=== PATIENT | female | born 1950 | race Caucasian/White ===

== ENCOUNTER 2016-11-07 12:01 | Inpatient (IN) | payer OTHER ==
[2016-11-07] VITALS (16 sets, daily range): BP systolic 122–152; BP diastolic 50–105
[~2016-11-07] VITALS: Ht 157.5 cm; Wt 41.0 kg
--- NOTE | ~2016-11-07 | H ---
[facility] [place] [address] HISTORY AND PHYSICAL Name: JACINDA GUY Room #: 245-P ADM IN M.R.#: [id number] Admission: 11/07/16 Attend Phys: Olga Plasencia MD Discharge: Date of : 46 Report #: [id number] THIS REPORT FOR: //name// CC: DREW Plasencia DATE OF SERVICE: 11/07/2016 PRIMARY CARE DOCTOR: Dr. Drew Dixon. CHIEF COMPLAINT: Shortness of breath. HISTORY OF PRESENT ILLNESS: The patient is a 66-year-old female with a history of chronic respiratory failure, on 3 liters of home O2; COPD, CHF, suspect diastolic based on the records here; previous history of respiratory arrest in 2013, at which time she was treated here; obstructive sleep apnea on BiPAP, presented to the ER secondary to shortness of breath. She is not a good historian as she is intermittently confused, therefore most of the information was obtained from the ER physician. She tells me she has been short of breath for about a week now. Her neighbors activated EMS today because she would not answer the door. On arrival, she appeared to be cyanotic with O2 sats in the 80s. She received breathing treatment en route. She apparently was treated for COPD exacerbation at [facility] couple of weeks ago. She claims to have quit smoking. Workup in the ER revealed an elevated CO2 of 90 with pH of 7.28. I was asked to admit her for hypercapnic respiratory failure. She currently denies any chest pain, does indicate the shortness of breath is a little improved. PAST MEDICAL HISTORY: As stated, chronic respiratory failure, on 3 liters of home O2; COPD, obstructive sleep apnea, on BiPAP; prior history of PE in 2013, although she is no longer on anticoagulation; paroxysmal AFib, chronic back pain, scoliosis, chronic kidney disease, prior history of compression fractures, and dyslipidemia. PAST SURGICAL HISTORY: She has had breast implants. FAMILY HISTORY: Reviewed and noncontributory. SOCIAL HISTORY: Prior history of smoking, although she currently indicates that she quit, was living independently. CURRENT MEDICATIONS: Include digoxin 0.125 mcg daily, diltiazem 30 mg p.r.n., albuterol p.r.n., atorvastatin 10 daily, Excedrin for headaches p.r.n., Xanax 0.25 mg at bedtime p.r.n., Symbicort 2 puffs b.i.d., Vona p.r.n., Spiriva 1 inhalation daily, and tramadol p.r.n. [address] [address] HISTORY AND PHYSICAL Name: JACINDA GUY Room #: [address] [place] [address] IN M.R.#: [id number] Admission: 11/07/16 Attend Phys: Olga Plasencia MD Discharge: Date of : 48 Report #: [id number] ALLERGIES: PENICILLIN, reactions unknown and CODEINE causes headache. REVIEW OF SYSTEMS: Difficult to obtain secondary to above, although the ER physician documented 10-point review of systems conducted, all negative except for above. PHYSICAL EXAMINATION: VITAL SIGNS: Temperature of 98, pulse of 102, blood pressure 143/64, and O2 sats 96% on FIO2 of 40. GENERAL: She is awake, intermittently confused, currently on the BiPAP, overall tachypneic. HEENT: Normocephalic, atraumatic. Pupils are equal. Mucous membranes are dry. NECK: Supple. CARDIOVASCULAR: Regular rate and rhythm. No murmurs. LUNGS: Decreased breath sounds diffusely, occasional wheeze. ABDOMEN: Soft, no distention or tenderness. EXTREMITIES: No edema. NEUROLOGIC: Nonfocal. LABORATORY AND TESTING: Initial ABG with pH of 7.28, pCO2 of 90, pO2 of 89, lactate of 1.06, O2 sat 93% on 3 liters. Repeat ABG after an hour and a half of BiPAP, pH of 7.3, pCO2 of 80, O2 sat %; this was on her BiPAP with an FIO2 of 40. TSH was 0.209. EKG showed sinus rhythm with a rate of 93 with PACs. Chest x-ray air trapping without evidence of pneumothorax or pleural effusion. White count of 9, H and H of 11 and 36, and platelets 249. Sodium 144, potassium 4.7, BUN and creatinine 26 and 0.7. ASSESSMENT AND PLAN: 1. Acute on chronic hypercapnic respiratory failure. We will continue O2 support with an IV and potential intubation if necessary. Pulmonary will see her. Continue aggressive pulmonary toiletry, IV steroids, and empiric antibiotics. 2. Chronic obstructive pulmonary disease exacerbation, again aggressive measures as above. 3. Prior history of heavy tobacco abuse. She currently indicates that she quit smoking. 4. History of pulmonary embolism. We will get a D-dimer and potential VQ or a CT angio if it is positive. 5. Paroxysmal atrial fibrillation. Continue her digoxin. She is currently not on any anticoagulation. 6. Chronic back pain. Continue pain meds judiciously. 7. Chronic congestive heart failure, suspect diastolic. She is currently not [address] [address] HISTORY AND PHYSICAL Name: JACINDA GUY Room #: 245-P [facility] IN M.R.#: [id number] Admission: 11/07/16 Attend Phys: Olga Plasencia MD Discharge: Date of : 48 Report #: [id number] on any diuretic therapy at this time. 8. Deep venous thrombosis prophylaxis with Lovenox. By: 1519 1722 Olga Plasencia MD /nt
--- NOTE | ~2016-11-07 | EKG ---
[address] [place] [address] ELECTROCARDIOGRAM REPORT Name: JACINDA GUY Room #: 306-P ADM IN M.R.#: [id number] Admission: 11/07/16 Attend Phys: Olga Plasencia MD Discharge: Date of : 48 Report #: [id number] THIS REPORT FOR: //name// [facility] ED Test Date: 2016-11-07 Test Time: 13:18:27 Pat Name: JACINDA GUY Department: Room: 306 Gender: F Managed Care Analyst: mayte : 1950 Requested By: Codey Sanchez Order Number: [id number] MD: Jean Ennis Measurements Intervals [place] Rate: 93 P: 91 SD: 161 QRS: 117 QRSD: 85 T: 91 QT: 338 QTc: 421 Interpretive Statements Sinus rhythm Atrial premature complexes Right atrial abnormality Right axis deviation Borderline low voltage, extremity leads Nonspecific T abnormalities, lateral leads Baseline wander in lead(s) II,III,aVR,aVL,aVF,V3 Compared to ECG 09/11/2013 07:17:57 Atrial premature complex(es) now present Electronically Signed On 11-09-2016 14:52:20 CDT by Jean Ennis [email or web address] <ELECTRONICALLY SIGNED> By: Jean Ennis MD, FACC 11/09/16 1452 1318 1318 Jean Ennis MD, [facility] /EPI
--- NOTE | ~2016-11-07 | HC ---
[facility] [address] [address] CONSULTATION Name: JACINDA GUY Room #: 306-P ADM IN M.R.#: [id number] Admission: 11/07/16 Attend Phys: Olga Plasencia MD Discharge: Date of : 48 Report #: [id number] THIS REPORT FOR: //name// CC: KENYATTA Plasencia DATE OF SERVICE: 11/07/2016 REASON FOR CONSULTATION: Hypercapnic respiratory failure. IMPRESSION: 1. Hypercapnic respiratory failure. 2. Exacerbation of chronic obstructive pulmonary disease. 3. Anemia. 4. 08/2013, history of arrest and acute renal failure. 5. Debilitation with recent falls. ICU protocol. BiPAP. Aerosol therapy. Corticosteroids. May check a repeat echo. HISTORY: A 66-year-old female who usually follows at [facility], currently on BiPAP. Unable to give lot of history, but relates she feels better than when she arrived. Recent admission to the hospital with exacerbation of COPD, off of antibiotics currently, now comes in found by EMS with low sats and was not opening door by report. SOCIAL HISTORY: Quit smoking in 2009. PAST SURGICAL HISTORY: Include breast implants. REVIEW OF SYSTEMS: History of COPD, chronic pain, compression fractures, scoliosis, per chart history of CHF. No fever or chills. Positive for cough, shortness of breath. Recent falls. ALLERGIES: PENICILLIN AND CODEINE. PHYSICAL EXAMINATION: VITAL SIGNS: Temp 93, pulse 68, respirations 12, BP 147/57. BiPAP on. NECK: Trachea midline. LUNGS: Showed very minimal air movement. HEART: Regular. ABDOMEN: Bowel sounds present. EXTREMITIES: Showed no edema. She is very thin. She follows and moved all extremities. LABORATORY DATA: BUN 26 and creatinine 0.7. White count 9.2, hemoglobin 11.2 and platelets 249. pH 7.284, pCO2 91 and pO2 89 on 3 liters. Chest x-ray showed bilateral calcified mammoplasties. Repeat ABG: pH 7.306, pCO2 80 and [facility] [address] [place] [address] CONSULTATION Name: JACINDA GUY Room #: 306-P [facility] IN [facility].#: [id number] Admission: 11/07/16 Attend Phys: Olga Plasencia MD Discharge: Date of : 48 Report #: [id number] pO2 70. On BiPAP 40%, rate of 20, pressure support of 14, PEEP of 8. TSH 0.209. We will follow closely with you. <ELECTRONICALLY SIGNED> By: Adonay Olmstead MD 11/10/16 0548 1738 1036 Adonay Olmstead MD /nt
[~2016-11-07 12:01] MED LIST: ACID CONTROL20 MG PO; ADULT LOW DOSE81 MG PO; ALBUTEROL INHAL17 GM IH; ALPRAZOLAM 0.0.25 M1 PO; CARVEDILOL3.125 MG PO; COLACE100 MG PO; DAILY VALUE1 EACH PO; DILAUDID 2 MG TA2 MG PO; EXCEDRIN CAPLE1 EACH PO; FAMOTIDINE 20 M20 MG PO; FENTANYL PA25 MCG/HR TP; FUROSEMIDE 20 M20 M1 PO; K-DUR10 ME1 PO; LIDODERM 5%1 PATCH TOP; MEDLISTUNAVAIL; MOBIC15 MG PO; NIACIN SR 250250 MG PO; NORCO 5-325 TA1 EACH PO; PREDNISONE 10 M10 M1 PO; PROAIR HFA8.5 GM INH; SPIRIVA INH; SYMBICORT160 MCG/4. INH; THERA-M CAPLET1 EACH PO; TRAMADOL 50 MG50 MG PO; XANAX 0.25 MG0.25 MG PO; ZOCOR 10 MG TAB10 MG PO
[2016-11-07 12:28] LABS: HEMATOCRIT 36.2 % (37.0-47.0); HEMOGLOBIN 11.2 gm/dL (12.0-15.0); MCH 26.9 pg (26.0-34.0); MCHC 30.9 g/dL (28.0-37.0); MCV 87.2 fL (80.0-100.0); RBC 4.15 mil/uL (4.20-5.00); RDW 17.9 % (10.5-14.5); WBC 9.2 thou/uL (4.0-11.0)
[2016-11-07 12:31] LABS: CALCIUM 8.5 mg/dL (8.5-10.1); CREATININE 0.7 mg/dL (0.6-1.0); POTASSIUM 4.7 mmol/L (3.5-5.1)
[2016-11-07] MEDS ORDERED: DIGOXIN125 MCG PO (12:37)
[2016-11-07] MEDS ORDERED: XANAX 0.5 MG0.5 MG PO (12:37)
[2016-11-07] MEDS ORDERED: CARDIZEM30 MG PO (12:38)
[2016-11-07] MEDS ORDERED: VENTOLIN HFA 1818 GM INH (12:39)
[2016-11-07] MEDS ORDERED: LIPITOR10 MG PO (12:39)
[2016-11-07 12:44] LABS: ABG SAMPLE TYPE ARTERIAL; BE(vivo) 11.9 mmol/L (-2 to +3); HCO3 42.1 mmol/L (22.0-26.0); LACTATE 1.06 mmol/L (0.5-2.0); O2(CT) 16.2 mL/dL (15.0-23.0); O2Hb 93.3 % (92.0-98.0); PO2 89.4 mmHg (80.0-100.0); sO2 95.2 % (92.0-98.0); tCO2 44.9 mmol/L (24.0-30.0)
[2016-11-07 12:45] LABS: PCO2 90.9 mmHg (35.0-45.0); STICK SITE R.RADIAL; pH 7.284 (7.360-7.450)
[2016-11-07 14:20] LABS: ABG SAMPLE TYPE ARTERIAL; BE(vivo) 9.9 mmol/L (-2 to +3); HCO3 39.1 mmol/L (22.0-26.0); O2(CT) 15.4 mL/dL (15.0-23.0); O2Hb 90.3 % (92.0-98.0); PO2 70.4 mmHg (80.0-100.0); sO2 91.7 % (92.0-98.0); tCO2 41.5 mmol/L (24.0-30.0)
[2016-11-07 14:21] LABS: PCO2 80.1 mmHg (35.0-45.0); STICK SITE R.BRACHIAL; pH 7.306 (7.360-7.450)
[2016-11-07 14:22] LABS: Pressure Support 14 cm H20; TIDAL VOLUME 640 ml
[2016-11-07 16:48] LABS: ABG SAMPLE TYPE ARTERIAL; BE(vivo) 9.7 mmol/L (-2 to +3); HCO3 37.7 mmol/L (22.0-26.0); LACTATE 1.37 mmol/L (0.5-2.0); O2Hb 94.5 % (92.0-98.0); PCO2 69.5 mmHg (35.0-45.0); PO2 87.6 mmHg (80.0-100.0); Pressure Support 10 cm H20; STICK SITE L.RADIAL; pH 7.352 (7.360-7.450); sO2 95.9 % (92.0-98.0); tCO2 39.8 mmol/L (24.0-30.0)
[2016-11-07 17:33] LABS: TROPONIN-I < 0.04 ng/mL (<0.04-0.07)
[2016-11-07 17:47] LABS: ALBUMIN 3.3 g/dL (3.4-5.0); ALKALINE PHOSPHATASE 74 U/L (46-116); DIRECT BILIRUBIN < 0.1 mg/dL (<0.1-0.3); SGOT 19 U/L (15-37); SGPT 13 U/L (30-65); TOTAL BILIRUBIN 0.4 mg/dL (<0.1-1.0); TOTAL PROTEIN 7.3 g/dL (6.4-8.2)
[2016-11-07 23:29] LABS: TROPONIN-I < 0.04 ng/mL (<0.04-0.07)
[2016-11-08] VITALS (14 sets, daily range): BP systolic 93–124; BP diastolic 40–110
[2016-11-08 05:25] LABS: ABG SAMPLE TYPE ARTERIAL; BE(vivo) 11.2 mmol/L (-2 to +3); HCO3 36.6 mmol/L (22.0-26.0); LACTATE 2.36 mmol/L (0.5-2.0); O2(CT) 16.4 mL/dL (15.0-23.0); O2Hb 98.5 % (92.0-98.0); PCO2 51.8 mmHg (35.0-45.0); PO2 153.5 mmHg (80.0-100.0); STICK SITE R.BRACHIAL; pH 7.467 (7.360-7.450); tCO2 38.2 mmol/L (24.0-30.0)
[2016-11-08 05:26] LABS: ABG COMMENT 18/8 I/E; Pressure Support 18 cm H20; VDS BIPAP SPONT TIMED cc
[2016-11-08 05:35] LABS: HEMATOCRIT 36.5 % (37.0-47.0); HEMOGLOBIN 11.2 gm/dL (12.0-15.0); MCH 26.4 pg (26.0-34.0); MCHC 30.7 g/dL (28.0-37.0); MCV 85.9 fL (80.0-100.0); PLATELET COUNT 250 thou/uL (150-400); RBC 4.25 mil/uL (4.20-5.00); WBC 2.5 thou/uL (4.0-11.0)
[2016-11-08 05:37] LABS: MANUAL DIFF YES
[2016-11-08 06:00] LABS: ANION GAP 7 mmol/L (7-16); BUN 44 mg/dL (7-18); CALCIUM 8.5 mg/dL (8.5-10.1); CHLORIDE 98 mmol/L (98-107); CO2 38 mmol/L (21-32); CREATININE 1.1 mg/dL (0.6-1.0); GLUCOSE 154 mg/dL (74-106); POTASSIUM 5.4 mmol/L (3.5-5.1); SODIUM 143 mmol/L (136-145); TROPONIN-I < 0.04 ng/mL (<0.04-0.07)
[2016-11-08 10:46] LABS: ABSOLUTE NEUTROPHILS 1.9 thou/uL (1.4-8.2); TOTAL CELL COUNT 100
[2016-11-08 10:47] LABS: ANISOCYTOSIS 1+
[2016-11-09 04:00] VITALS: BP 115/67
[2016-11-09 04:57] LABS: HEMATOCRIT 29.9 % (37.0-47.0); HEMOGLOBIN 9.4 gm/dL (12.0-15.0); MCH 26.6 pg (26.0-34.0); MCHC 31.6 g/dL (28.0-37.0); MCV 84.3 fL (80.0-100.0); RBC 3.54 mil/uL (4.20-5.00); RDW 18.1 % (10.5-14.5)
[2016-11-09 05:01] LABS: WBC 11.7 thou/uL (4.0-11.0)
[2016-11-09 05:08] LABS: CALCIUM 7.9 mg/dL (8.5-10.1); MAGNESIUM 1.9 mg/dL (1.8-2.4); POTASSIUM 4.5 mmol/L (3.5-5.1)
[2016-11-09 08:00] VITALS: BP 111/52
[2016-11-09] MEDS ORDERED: DOXYCYCLINE 10100 MG PO (08:40)
[2016-11-09] MEDS ORDERED: PREDNISONE 10 M10 MG PO (08:41)
[2016-11-09 16:00] VITALS: BP 101/50
[2016-11-09 19:19] VITALS: BP 112/61
[2016-11-10 04:24] VITALS: BP 111/70
[2016-11-10 06:08] LABS: HEMATOCRIT 31.2 % (37.0-47.0); HEMOGLOBIN 9.6 gm/dL (12.0-15.0); MCH 26.4 pg (26.0-34.0); MCHC 30.9 g/dL (28.0-37.0); MCV 85.4 fL (80.0-100.0); RBC 3.65 mil/uL (4.20-5.00); WBC 14.3 thou/uL (4.0-11.0)
[2016-11-10 07:20] VITALS: BP 116/46
[2016-11-10 10:51] VITALS: BP 116/46
[2016-11-10 11:12] VITALS: BP 112/58
[2016-11-10] MEDS ORDERED: DUONEB 2.5-0.5 M3 ML INH ×2 (11:57→13:00)
[2016-11-10] MEDS ORDERED: PULMICORT0.5 MG/21 INH (11:57)
== END 2016-11-10 13:35 | disposition home or self-care (01) | DRG 189 ==
LOC: ER 12:01 → 3N 13:51 → EROBS 13:51 → ICU 17:59 → 3N 11-08 12:21
PROVIDERS: Emergency Medicine; Family Medicine; Internal Medicine Pulmonary Disease
PROC: 5A09457 Assistance with Respiratory Ventilation, 24-96 Consecutive Hours, Continuous Positive Airway Pressure (ICD-10-PCS; principal; 2016-11-07)
DX: J96.22 Acute and chronic respiratory failure with hypercapnia (principal); J44.1 Chronic obstructive pulmonary disease with (acute) exacerbation; I13.0 Hypertensive heart and chronic kidney disease with heart failure and stage 1 through stage 4 chronic kidney disease, or unspecified chronic kidney disease; G89.29 Other chronic pain; M54.9 Dorsalgia, unspecified; I50.9 Heart failure, unspecified; M41.9 Scoliosis, unspecified; D64.9 Anemia, unspecified; R53.81 Other malaise; G47.33 Obstructive sleep apnea (adult) (pediatric); I48.0 Paroxysmal atrial fibrillation; N18.9 Chronic kidney disease, unspecified; E78.5 Hyperlipidemia, unspecified; Z86.74 Personal history of sudden cardiac arrest; Z86.711 Personal history of pulmonary embolism; Z88.0 Allergy status to penicillin; Z88.6 Allergy status to analgesic agent; Z87.311 Personal history of (healed) other pathological fracture; Z87.891 Personal history of nicotine dependence
CPT/HCPCS: 10078; 10096

== ENCOUNTER 2016-11-29 14:59 | Inpatient (IN) | payer OTHER ==
[~2016-11-29] VITALS: Ht 157.5 cm; Wt 38.1 kg
--- NOTE | ~2016-11-29 | EKG ---
[address] [address] ELECTROCARDIOGRAM REPORT Name: GUYJACIDNA SUE Room #: 453-P ADM IN M.R.#: [id number] Admission: 11/29/16 Attend Phys: Mario Arango DO Discharge: Date of : 48 Report #: [id number] THIS REPORT FOR: //name// [facility] ED Test Date: 2016-11-29 Test Time: 15:37:21 Pat Name: JACINDA GUY Department: Room: [facility] Gender: F Emergency Response Coordinator: Ad WHITING : 1950 Requested By: Devang Singh Order Number: [id number] MD: Jere Manley Measurements Intervals [place] Rate: 102 P: 82 HI: 174 QRS: 112 QRSD: 79 T: 55 QT: 310 QTc: 404 Interpretive Statements Sinus tachycardia Atrial premature complex Biatrial enlargement Anteroseptal infarct, age indeterminate Electronically Signed On 12-01-2016 8:45:31 CDT by Jere Manley [email or web address] <ELECTRONICALLY SIGNED> By: Jere Manley MD 12/01/16 0845 36 36 Jere Manley MD /DHIRAJ
--- NOTE | ~2016-11-29 | HC ---
[facility] [place] [address] CONSULTATION Name: JACINDA GUY Room #: 453-P ADM IN M.R.#: [id number] Admission: 11/29/16 Attend Phys: Mario Arango DO Discharge: Date of : 48 Report #: [id number] THIS REPORT FOR: //name// CC: KENYATTA Barakat DATE OF SERVICE: 11/30/2016 REASON FOR CONSULTATION: COPD management. IMPRESSION: 1. Hypercapnic respiratory failure. 2. Anemia. 3. History of arrest and acute renal failure in 2013. 4. Debilitation. PLAN: Agree with current therapy. She is not on antibiotics and since does not complain about a recent infection. She relates most of this is related to forgetting to turn on her oxygen. She has been in the hospital in [place] earlier this year, and November 07 here. We will have a psychotherapist social worker see as I am concerned about her status at home as she may not be following through with suggestions and may need more of assisted living. HISTORY PER CHART: A 66-year-old female who comes to the emergency room with shortness breath, brought by EMS. She to ER, she lost her oxygen for a couple of minutes and then began feeling short of breath. She denies any chest pain or shortness of breath with it. She relates she is doing well at this time. She denies fever, chills, night sweats, hemoptysis. HOME MEDICATIONS PER COMPUTER: Include digoxin, tramadol, diltiazem, DuoNeb. PAST SURGICAL HISTORY: Include breast implants. ALLERGIES: PENICILLIN and CODEINE. FAMILY HISTORY: Negative for early lung disease. REVIEW OF SYSTEMS: History of COPD, chronic back pain, compression fractures, scoliosis, history of CHF, no fever or chills, prior to being off oxygen she relates she felt okay. She does not relate she is taking a significant amount of pain meds. No abdominal pain, no peripheral edema. PHYSICAL EXAMINATION: VITAL SIGNS: Temperature 98, pulse 60, respirations 20, BP 131/53. EYES: Negative icterus. NECK: Trachea midline. [facility] [address] [place] [address] CONSULTATION Name: BROOKSJACINDA VEGA Room #: 453-P [facility] IN M.R.#: [id number] Admission: 11/29/16 Attend Phys: Mario Arango DO Discharge: Date of : 48 Report #: [id number] LUNGS: Showed decreased breath sounds. No definite wheeze. HEART: Regular. ABDOMEN: Bowel sounds present. EXTREMITIES: Showed no calf tenderness or edema. Moved all extremities, recognized me when I walked into room. LABORATORY DATA: White count 4.9, hemoglobin 10.5, platelets 217. Chest x-ray showed no acute. Lactic acid 2.2. BUN 36, creatinine 0.8, albumin 2.9. ABG this morning, off BiPAP, pH 7.38, pCO2 of 72.5 and pO2 of 67.9. Yesterday afternoon ABG showed pH 7.306, pCO2 93.2, pO2 of 95.6 on 4 liters. Her carboxyhemoglobin was 1.6. Chest x-ray showed chronic changes, D-dimer 0.49, white count 12.8, hemoglobin 11.3, platelets 247, no bands. We will follow closely with you. <ELECTRONICALLY SIGNED> By: Adonay Olmstead MD 12/01/16 1950 1114 1857 Adonay Olmstead MD /nt
[~2016-11-29 14:59] MED LIST changes: +CARDIZEM30 MG PO; +DIGOXIN125 MCG PO; +DOXYCYCLINE 10100 MG PO; +DUONEB 2.5-0.5 M3 ML INH; +LIPITOR10 MG PO; +PREDNISONE 10 M10 MG PO; +PULMICORT0.5 MG/21 INH; +VENTOLIN HFA 1818 GM INH; +XANAX 0.5 MG0.5 MG PO
[2016-11-29 15:01] VITALS: BP 134/67
[2016-11-29 15:25] LABS: HEMOGLOBIN 11.3 gm/dL (12.0-15.0)
[2016-11-29 15:28] LABS: ABG SAMPLE TYPE ARTERIAL; BE(vivo) 15.5 mmol/L (-2 to +3); HCO3 45.5 mmol/L (22.0-26.0); LACTATE 0.73 mmol/L (0.5-2.0); O2(CT) 15.4 mL/dL (15.0-23.0); O2Hb 95.1 % (92.0-98.0); PCO2 93.2 mmHg (35.0-45.0); PO2 95.6 mmHg (80.0-100.0); STICK SITE R.BRACHIAL; pH 7.306 (7.360-7.450); sO2 96.1 % (92.0-98.0); tCO2 48.3 mmol/L (24.0-30.0)
[2016-11-29 15:29] LABS: MCH 27.3 pg (26.0-34.0); MCV 85.2 fL (80.0-100.0); PLATELET COUNT 247 thou/uL (150-400)
[2016-11-29 15:31] LABS: HEMATOCRIT 35.2 % (37.0-47.0); RBC 4.13 mil/uL (4.20-5.00); RDW 20.8 % (10.5-14.5); WBC 12.8 thou/uL (4.0-11.0)
[2016-11-29 15:34] LABS: MANUAL DIFF YES
[2016-11-29 16:08] LABS: CREATININE 0.6 mg/dL (0.6-1.0); POTASSIUM 4.7 mmol/L (3.5-5.1)
[2016-11-29 16:19] LABS: ALBUMIN 3.1 g/dL (3.4-5.0); MAGNESIUM 1.8 mg/dL (1.8-2.4); TOTAL BILIRUBIN 0.3 mg/dL (<0.1-1.0); TOTAL PROTEIN 6.8 g/dL (6.4-8.2); TROPONIN-I 0.05 ng/mL (<0.04-0.07)
[2016-11-29 16:59] LABS: TOTAL CELL COUNT 100
[2016-11-29 17:00] LABS: ANISOCYTOSIS 2+; MACROCYTES 1+; MICROCYTES 2+; TARGET CELLS 1+
[2016-11-29 18:45] VITALS: BP 142/66
[2016-11-29 21:37] LABS: ABG SAMPLE TYPE ARTERIAL; BE(vivo) 12.1 mmol/L (-2 to +3); HCO3 39.7 mmol/L (22.0-26.0); LACTATE 1.52 mmol/L (0.5-2.0); O2(CT) 15.2 mL/dL (15.0-23.0); O2Hb 93.6 % (92.0-98.0); PCO2 68.6 mmHg (35.0-45.0); PO2 75.9 mmHg (80.0-100.0); Pressure Support 6 cm H20; STICK SITE L.RADIAL; sO2 94.4 % (92.0-98.0); tCO2 41.8 mmol/L (24.0-30.0)
[2016-11-29 23:26] VITALS: BP 106/65
[2016-11-30 04:12] VITALS: BP 122/59
[2016-11-30 05:31] LABS: HEMATOCRIT 33.1 % (37.0-47.0); HEMOGLOBIN 10.5 gm/dL (12.0-15.0); MCH 27.3 pg (26.0-34.0); MCHC 31.6 g/dL (28.0-37.0); MCV 86.3 fL (80.0-100.0); PLATELET COUNT 217 thou/uL (150-400); RBC 3.84 mil/uL (4.20-5.00); WBC 4.9 thou/uL (4.0-11.0)
[2016-11-30 05:32] LABS: MANUAL DIFF YES
[2016-11-30 05:34] LABS: ABG SAMPLE TYPE ARTERIAL; HCO3 41.9 mmol/L (22.0-26.0); LACTATE 2.09 mmol/L (0.5-2.0); O2(CT) 14.5 mL/dL (15.0-23.0); O2Hb 90.9 % (92.0-98.0); PCO2 72.5 mmHg (35.0-45.0); PO2 67.9 mmHg (80.0-100.0); STICK SITE L.RADIAL; sO2 92.4 % (92.0-98.0); tCO2 44.2 mmol/L (24.0-30.0)
[2016-11-30 05:35] LABS: VDS OFF BIPAP 45MIN cc
[2016-11-30 05:48] LABS: ALBUMIN 2.9 g/dL (3.4-5.0); CALCIUM 8.7 mg/dL (8.5-10.1); CREATININE 0.8 mg/dL (0.6-1.0); POTASSIUM 4.5 mmol/L (3.5-5.1); TOTAL BILIRUBIN 0.3 mg/dL (<0.1-1.0); TOTAL PROTEIN 6.6 g/dL (6.4-8.2)
[2016-11-30 07:22] VITALS: BP 131/53
[2016-11-30 09:56] LABS: ABSOLUTE NEUTROPHILS 4.5 thou/uL (1.4-8.2); TOTAL CELL COUNT 100
[2016-11-30 09:57] LABS: ANISOCYTOSIS 1+
[2016-11-30 11:20] VITALS: BP 126/62
[2016-11-30 15:38] VITALS: BP 122/50
[2016-11-30 19:22] VITALS: BP 117/41
[2016-12-01 03:20] VITALS: BP 116/55
[2016-12-01 07:24] VITALS: BP 117/62
[2016-12-01 12:48] VITALS: BP 113/47
[2016-12-01 15:55] VITALS: BP 131/65
[2016-12-01 20:00] VITALS: BP 117/52
[2016-12-02 04:00] VITALS: BP 133/63
[2016-12-02 08:17] VITALS: BP 108/53
[2016-12-02 10:23] VITALS: BP 108/53
[2016-12-02 10:27] VITALS: BP 108/53
== END 2016-12-02 11:33 | disposition home health service (06) | DRG 189 ==
LOC: ER 14:59 → EROBS 16:26 → 4W 16:26
PROVIDERS: Internal Medicine Geriatric Medicine; Internal Medicine Pulmonary Disease; Physician Assistant
PROC: 5A09357 Assistance with Respiratory Ventilation, Less than 24 Consecutive Hours, Continuous Positive Airway Pressure (ICD-10-PCS; principal; 2016-11-29)
DX: J96.22 Acute and chronic respiratory failure with hypercapnia (principal); J44.1 Chronic obstructive pulmonary disease with (acute) exacerbation; G89.29 Other chronic pain; M54.9 Dorsalgia, unspecified; M41.9 Scoliosis, unspecified; I50.9 Heart failure, unspecified; D64.9 Anemia, unspecified; D72.829 Elevated white blood cell count, unspecified; I48.0 Paroxysmal atrial fibrillation; Z88.6 Allergy status to analgesic agent; Z88.0 Allergy status to penicillin; Z98.82 Breast implant status; Z87.891 Personal history of nicotine dependence
CPT/HCPCS: 10045

== ENCOUNTER 2016-12-17 22:51 | Inpatient (IN) | payer OTHER ==
[~2016-12-17] VITALS: Ht 157.5 cm; Wt 44.5 kg
--- NOTE | ~2016-12-17 | EKG ---
[address] [address] ELECTROCARDIOGRAM REPORT Name: JACINDA GUY Room #: 203-P ADM IN M.R.#: [id number] Admission: 12/18/16 Attend Phys: Gregorio Sprague MD Discharge: Date of : 48 Report #: [id number] THIS REPORT FOR: //name// [facility] ED Test Date: 2016-12-17 Test Time: 23:24:50 Pat Name: JACINDA GUY Department: Room: 203 Gender: F Cad Drafter: [id number] : 1950 Requested By: Meche Milligan Order Number: [id number] MD: Jean Ennis Measurements Intervals [place] Rate: 98 P: 85 HI: 182 QRS: 105 QRSD: 83 T: 54 QT: 316 QTc: 404 Interpretive Statements Sinus rhythm with atrial premature complex Probable left atrial enlargement Right axis deviation Probable anteroseptal infarct, old Compared to ECG 11/29/2016 15:37:21 no significant change was found Electronically Signed On 12-18-2016 7:27:41 CDT by Jean Ennis [email or web address] <ELECTRONICALLY SIGNED> By: Jean Ennis MD, [facility] 12/18/16 0727 2324 2324 Jean Ennis MD, [facility] /EPI
--- NOTE | ~2016-12-17 | HC ---
[facility] [place] [address] CONSULTATION Name: JACINDA GUY Room #: 448-P [facility] IN M.R.#: [id number] Admission: 12/18/16 Attend Phys: Mario Arango DO Discharge: 12/23/16 Date of : 48 Report #: [id number] THIS REPORT FOR: //name// CC: KENYATTA Sprague MD DATE OF SERVICE: 12/18/2016 PULMONARY CONSULTATION REFERRING PROVIDER: Gregorio Sprague M.D. REASON FOR CONSULTATION: Respiratory failure. CHIEF COMPLAINT: Shortness of breath. HISTORY OF PRESENT ILLNESS: Our group was asked to see the patient in consultation while hospitalized at [facility]. She has had multiple admissions for acute exacerbation of COPD and hypercapnic respiratory failure. She was brought to the emergency department via EMS on the first december with altered mental status, found down by her neighbor. The patient in the ER was found to be hypercapnic in respiratory failure with acute exacerbation of COPD. She has been started on systemic steroids, bronchodilators and when I saw her, she appeared to be a diminutive lady on BiPAP, arousable, but very somnolent and difficult to get much further history from. ALLERGIES: PENICILLIN and CODEINE. PAST MEDICAL HISTORY: 1. COPD. 2. Chronic hypercapnic respiratory failure. 3. Chronic back pain. 4. History of osteoporosis. 5. Chronic hypoxemic respiratory failure, on 2 liters nasal cannula. 6. Tobacco abuse. 7. Obstructive sleep apnea. 8. History of paroxysmal atrial fibrillation. 9. History of pulmonary emboli. SOCIAL HISTORY: The patient is an active smoker, lives alone, but has son who assists frequently. FAMILY HISTORY: Unobtainable due to diminished level of consciousness. REVIEW OF SYSTEMS: Otherwise, unobtainable due to diminished level of [facility] [address] [place] [address] CONSULTATION Name: JACINDA GUY Room #: 448-P [facility] IN [facility].#: [id number] Admission: 12/18/16 Attend Phys: Mario Arango DO Discharge: 12/23/16 Date of : 48 Report #: [id number] consciousness. PHYSICAL EXAMINATION: VITAL SIGNS: Afebrile, pulse 90s, respiratory rate 18 and blood pressure 118/44. GENERAL: This is a diminutive elderly woman on BiPAP, no distress, somewhat somnolent. ENT: Unassessed due to BiPAP in place. NECK: Supple. No lymphadenopathy. LUNGS: Diminished. Very prolonged expiratory phase, occasional expiratory wheezes noted. CARDIOVASCULAR: Heart regular. No murmurs or gallops. ABDOMEN: Soft, nontender. No masses, no hepatosplenomegaly. EXTREMITIES: Warm, 2+ pulses. No edema noted. INTEGUMENT: No significant rash. LABORATORY DATA: White blood cell count 9000, hemoglobin 10, hematocrit 32 and platelet count 247,000. Sodium 144, potassium 4.5, chloride 102, bicarbonate 41, BUN 36, creatinine 0.8 and glucose 98. Arterial blood gas initially on presentation revealed a pH of 7.26, pCO2 of 92 and pO2 of 81. However, after being on BiPAP prior to my evaluation, blood gas improved with pH at 7.41, pCO2 of 65, pO2 of 68 and bicarbonate of 40. Chest x-ray revealed clear lung [place], cardiomegaly and early left lower lobe infiltrate. IMPRESSION: 1. Acute exacerbation of chronic obstructive pulmonary disease. 2. Left lower lobe pneumonia. 3. Exhbl-tr-odezyet hypercapnic and hypoxemic respiratory failure. 4. Probable medical noncompliance with home CPAP and supplemental oxygen as well as ongoing tobacco abuse. SUGGESTIONS: 1. Smoking cessation. 2. Systemic steroids with taper. 3. Frequent bronchodilators. 4. Continue with current antibiotics. 5. Follow up chest radiograph. 6. Continue BiPAP. We will change to bedtime and p.r.n. as the patient's mental status improves. 7. Follow arterial blood gas. 8. Mobilize with physical and occupational therapy. 9. [place] [address] CONSULTATION Name: JACINDA GUY Room #: 448-P [facility] IN M.R.#: [id number] Admission: 12/18/16 Attend Phys: Mario Arango DO Discharge: 12/23/16 Date of : 48 Report #: [id number] Thank you for requesting our suggestions. <ELECTRONICALLY SIGNED> By: Hai Briggs MD 12/25/16 1133 1614 1145 Hai Briggs MD /nt
[2016-12-17 22:52] VITALS: BP 78/66
[2016-12-17 23:27] LABS: ABG SAMPLE TYPE ARTERIAL; BE(vivo) 9.4 mmol/L (-2 to +3); LACTATE 0.68 mmol/L (0.5-2.0); O2(CT) 15.5 mL/dL (15.0-23.0); O2Hb 94.5 % (92.0-98.0); PO2 121.1 mmHg (80.0-100.0); sO2 97.4 % (92.0-98.0)
[2016-12-17 23:28] LABS: PCO2 97.6 mmHg (35.0-45.0); STICK SITE R.RADIAL; pH 7.231 (7.360-7.450)
[2016-12-17 23:46] LABS: ABSOLUTE NEUTROPHILS 7.2 thou/uL (1.4-8.2); BASOPHILS 0.7 % (0.0-2.0); EOSINOPHILS 0.6 % (0.0-3.0); HEMOGLOBIN 10.6 gm/dL (12.0-15.0); LYMPHOCYTES 17.4 % (24.0-44.0); MCH 26.6 pg (26.0-34.0); MCHC 30.1 g/dL (28.0-37.0); MCV 88.3 fL (80.0-100.0); MONOCYTES 10.6 % (1.0-8.0); PLATELET COUNT 261 thou/uL (150-400); POLYS 70.7 % (36.0-66.0); RBC 3.97 mil/uL (4.20-5.00); RDW 19.9 % (10.5-14.5); WBC 10.2 thou/uL (4.0-11.0)
[2016-12-17 23:50] LABS: MANUAL DIFF NO
[2016-12-17 23:53] LABS: CALCIUM 8.6 mg/dL (8.5-10.1); CREATININE 0.7 mg/dL (0.6-1.0); POTASSIUM 4.5 mmol/L (3.5-5.1)
[2016-12-18] VITALS (7 sets, daily range): BP systolic 110–150; BP diastolic 34–73
[2016-12-18 01:44] LABS: ABG SAMPLE TYPE ARTERIAL; BE(vivo) 10.3 mmol/L (-2 to +3); HCO3 40.5 mmol/L (22.0-26.0); LACTATE 1.05 mmol/L (0.5-2.0); O2(CT) 15.5 mL/dL (15.0-23.0); O2Hb 92.3 % (92.0-98.0); PCO2 91.7 mmHg (35.0-45.0); PO2 80.6 mmHg (80.0-100.0); STICK SITE R.BRACHIAL; pH 7.263 (7.360-7.450); sO2 93.4 % (92.0-98.0); tCO2 43.3 mmol/L (24.0-30.0)
[2016-12-18 01:45] LABS: Pressure Support 6 cm H20
[2016-12-18] MEDS ORDERED: VITAMIN D1000 UNI1 PO (01:58)
[2016-12-18] MEDS ORDERED: TRAMADOL 50 MG50 MG PO (02:02)
[2016-12-18] MEDS ORDERED: HEADACHE RELIE1 EAC3 PO (02:04)
[2016-12-18 07:16] LABS: ABG SAMPLE TYPE ARTERIAL; BE(vivo) 12.6 mmol/L (-2 to +3); HCO3 39.8 mmol/L (22.0-26.0); LACTATE 1.16 mmol/L (0.5-2.0); O2(CT) 15.7 mL/dL (15.0-23.0); O2Hb 92.1 % (92.0-98.0); PCO2 64.8 mmHg (35.0-45.0); PO2 67.5 mmHg (80.0-100.0); Pressure Support 6 cm H20; STICK SITE L.RADIAL; pH 7.406 (7.360-7.450); sO2 92.9 % (92.0-98.0); tCO2 41.8 mmol/L (24.0-30.0)
[2016-12-19] VITALS (8 sets, daily range): BP systolic 89–111; BP diastolic 29–59
[2016-12-19 04:07] LABS: HEMATOCRIT 31.6 % (37.0-47.0); MCH 26.7 pg (26.0-34.0); MCHC 31.8 g/dL (28.0-37.0); RBC 3.77 mil/uL (4.20-5.00); RDW 19.4 % (10.5-14.5); WBC 8.7 thou/uL (4.0-11.0)
[2016-12-19 04:12] LABS: CALCIUM 8.7 mg/dL (8.5-10.1); CREATININE 0.8 mg/dL (0.6-1.0); POTASSIUM 4.5 mmol/L (3.5-5.1)
[2016-12-19 06:05] LABS: ABG SAMPLE TYPE ARTERIAL; BE(vivo) 14.9 mmol/L (-2 to +3); HCO3 41.7 mmol/L (22.0-26.0); LACTATE 1.09 mmol/L (0.5-2.0); O2(CT) 14.1 mL/dL (15.0-23.0); O2Hb 91.7 % (92.0-98.0); PCO2 63.9 mmHg (35.0-45.0); PO2 65.7 mmHg (80.0-100.0); STICK SITE L.RADIAL; pH 7.432 (7.360-7.450); sO2 92.8 % (92.0-98.0); tCO2 43.6 mmol/L (24.0-30.0)
[2016-12-19 06:07] LABS: Pressure Support 6 cm H20
[2016-12-20 03:27] VITALS: BP 97/36
[2016-12-20 05:31] VITALS: BP 99/55
[2016-12-20 08:00] VITALS: BP 121/42
[2016-12-20 12:00] VITALS: BP 121/44
[2016-12-20 16:00] VITALS: BP 107/55
[2016-12-20 19:23] VITALS: BP 118/44
[2016-12-21 03:15] VITALS: BP 104/40
[2016-12-21 08:30] VITALS: BP 103/43
[2016-12-21 13:18] VITALS: BP 111/45
[2016-12-21 15:50] VITALS: BP 109/47
[2016-12-21 19:38] VITALS: BP 103/43
[2016-12-22 03:43] VITALS: BP 123/41
[2016-12-22 04:37] LABS: HEMOGLOBIN 9.3 gm/dL (12.0-15.0); MCH 26.7 pg (26.0-34.0); MCHC 31.1 g/dL (28.0-37.0); MCV 85.8 fL (80.0-100.0); RBC 3.49 mil/uL (4.20-5.00); RDW 20.1 % (10.5-14.5); WBC 12.6 thou/uL (4.0-11.0)
[2016-12-22 04:58] LABS: ANION GAP < 0 mmol/L (7-16); BUN 37 mg/dL (7-18); CALCIUM 8.3 mg/dL (8.5-10.1); CHLORIDE 102 mmol/L (98-107); CO2 41 mmol/L (21-32); CREATININE 0.8 mg/dL (0.6-1.0); GLUCOSE 159 mg/dL (74-106); POTASSIUM 5.5 mmol/L (3.5-5.1); SODIUM 142 mmol/L (136-145)
[2016-12-22 07:20] LABS: ABG SAMPLE TYPE ARTERIAL; BE(vivo) 9.4 mmol/L (-2 to +3); HCO3 36.9 mmol/L (22.0-26.0); LACTATE 1.33 mmol/L (0.5-2.0); O2(CT) 14.1 mL/dL (15.0-23.0); O2Hb 96.5 % (92.0-98.0); PCO2 68.5 mmHg (35.0-45.0); PO2 103.6 mmHg (80.0-100.0); STICK SITE R.RADIAL; pH 7.349 (7.360-7.450); sO2 97.3 % (92.0-98.0)
[2016-12-22 07:50] VITALS: BP 128/61
[2016-12-22 16:15] VITALS: BP 117/34
[2016-12-22 19:45] VITALS: BP 103/42
[2016-12-23 03:05] VITALS: BP 105/98
[2016-12-23 07:48] LABS: BUN 42 mg/dL (7-18); CALCIUM 8.3 mg/dL (8.5-10.1); CHLORIDE 103 mmol/L (98-107); CREATININE 0.8 mg/dL (0.6-1.0); GLUCOSE 84 mg/dL (74-106); POTASSIUM 5.5 mmol/L (3.5-5.1); SODIUM 142 mmol/L (136-145)
[2016-12-23 07:50] LABS: CO2 > 45 mmol/L (21-32)
[2016-12-23 08:37] VITALS: BP 104/44
[2016-12-23 17:47] VITALS: BP 103/54
[2016-12-23] MEDS ORDERED: CEFUROXIME250 MG PO (17:54)
[2016-12-23] MEDS ORDERED: PREDNISONE 10 M10 MG PO (17:57)
== END 2016-12-23 18:47 | disposition home health service (06) | DRG 189 ==
LOC: ER 22:51 → EROBS 12-18 00:16 → 2N 12-18 00:16 → 4S 12-22 18:56
PROVIDERS: Emergency Medicine; Family Medicine; Internal Medicine; Internal Medicine Pulmonary Disease; Nurse Practitioner Acute Care
PROC: 5A09457 Assistance with Respiratory Ventilation, 24-96 Consecutive Hours, Continuous Positive Airway Pressure (ICD-10-PCS; principal; 2016-12-18)
DX: J96.22 Acute and chronic respiratory failure with hypercapnia (principal); J18.9 Pneumonia, unspecified organism; G93.40 Encephalopathy, unspecified; J44.1 Chronic obstructive pulmonary disease with (acute) exacerbation; J44.0 Chronic obstructive pulmonary disease with (acute) lower respiratory infection; J96.21 Acute and chronic respiratory failure with hypoxia; G89.29 Other chronic pain; M54.9 Dorsalgia, unspecified; I50.9 Heart failure, unspecified; M81.0 Age-related osteoporosis without current pathological fracture; G47.33 Obstructive sleep apnea (adult) (pediatric); I48.0 Paroxysmal atrial fibrillation; Z60.2 Problems related to living alone; N18.3 Chronic kidney disease, stage 3 (moderate); Z79.899 Other long term (current) drug therapy; Z86.711 Personal history of pulmonary embolism; Z87.81 Personal history of (healed) traumatic fracture; Z99.81 Dependence on supplemental oxygen; Z88.0 Allergy status to penicillin; Z71.6 Tobacco abuse counseling; Z88.6 Allergy status to analgesic agent; Z87.891 Personal history of nicotine dependence
CPT/HCPCS: 10081; 10102

== ENCOUNTER 2017-01-05 09:50 | Inpatient (IN) | payer OTHER ==
[~2017-01-05] VITALS: Ht 152.4 cm; Wt 48.9 kg
[2017-01-05] VITALS (13 sets, daily range): BP systolic 103–141; BP diastolic 60–91
--- NOTE | ~2017-01-05 | EKG ---
[address] [address] ELECTROCARDIOGRAM REPORT Name: JACINDA GUY Room #: 462- ADM IN M.R.#: [id number] Admission: 01/05/17 Attend Phys: Gregorio Sprague MD Discharge: Date of : 48 Report #: [id number] THIS REPORT FOR: //name// [facility] Test Date: 2017-01-26 Test Time: 15:29:58 Pat Name: JACINDA GUY Department: Room: 462 Gender: F Incident Analyst: Griffin GUZMAN : 1950 Requested By: Hussein Singh Order Number: [id number] MD: Jere Manley Measurements Intervals [place] Rate: 100 P: 86 NC: 151 QRS: 100 QRSD: 90 T: 44 QT: 351 QTc: 453 Interpretive Statements Sinus tachycardia with irregular rate Compared to ECG 01/10/2017 20:12:45 Myocardial infarct finding now present Supraventricular tachycardia no longer present ST (T wave) deviation no longer present Poor R-wave progression no longer present Electronically Signed On 01-26-2017 17:06:41 CDT by Jere Manley [email or web address] <ELECTRONICALLY SIGNED> By: Jere Manley MD 01/26/17 1706 1529 1529 Jere Manley MD /EPI
--- NOTE | ~2017-01-05 | EKG ---
[address] [address] ELECTROCARDIOGRAM REPORT Name: JACINDA GUY Room #: 240-P ADM IN M.R.#: [id number] Admission: 01/05/17 Attend Phys: Gregorio Sprague MD Discharge: Date of : 46 Report #: [id number] THIS REPORT FOR: //name// [facility] ED Test Date: 2017-01-05 Test Time: 10:02:41 Pat Name: JACINDA GUY Department: Room: 240 Gender: F Oncology Physician Assistant: JW : 1950 Requested By: Devang Singh Order Number: [id number] MD: Jere Manley Measurements Intervals [place] Rate: 104 P: 88 [place]: 157 QRS: 111 QRSD: 86 T: 57 QT: 326 QTc: 429 Interpretive Statements Sinus tachycardia Biatrial enlargement Probable RVH w/ secondary repol abnormality Compared to ECG 12/17/2016 23:24:50 Sinus rhythm no longer present Atrial premature complex(es) no longer present Right-axis deviation no longer present Myocardial infarct finding no longer present Electronically Signed On 01-06-2017 12:47:45 CDT by Jere Manley [email or web address] <ELECTRONICALLY SIGNED> By: Jere Manley MD 01/06/17 1247 1002 1002 Jere Manley MD /EPI
--- NOTE | ~2017-01-05 | EKG ---
[address] [address] ELECTROCARDIOGRAM REPORT Name: GUYJACINDA VEGA Room #: 236-P ADM IN M.R.#: [id number] Admission: 01/05/17 Attend Phys: Gregorio Sprague MD Discharge: Date of : 46 Report #: [id number] THIS REPORT FOR: //name// [facility] Test Date: 2017-01-10 Test Time: 20:12:45 Pat Name: JACINDA GUY Department: Room: 236 P Gender: F Appliance Fixer: robb : 1950 Requested By: Stefania Mosquera Order Number: [id number] MD: Jean Ennis Measurements Intervals [place] Rate: 183 P: CT: QRS: 113 QRSD: 74 T: 14 QT: 252 QTc: 440 Interpretive Statements Supraventricular tachycardia Nonspecific ST and T wave abnormality Poor R wave progression Compared to ECG 01/05/2017 10:02:41 SVT has replaced sinus tachycardia Electronically Signed On 01-12-2017 8:32:17 CDT by Jean Ennis [email or web address] <ELECTRONICALLY SIGNED> By: Jean Ennis MD, [facility] 01/12/17 0832 11 11 Jean Ennis MD, [facility] /EPI
--- NOTE | ~2017-01-05 | 2DMMODE ---
[facility] [address] [place] [address] 2 D/M-MODE ECHOCARDIOGRAM Name: BROOKSJACINDA FERRARI Room #: 236-P ADM IN M.R.#: [id number] Admission: 01/05/17 Attend Phys: Gregorio Sprague, Discharge: Date of : 46 Date of Service: 01/16/17 1652 Report #: [id number] THIS REPORT FOR: //name// APPROVED REPORT Study performed: 01/16/2017 08:23:17 EXAM: Comprehensive 2D, Doppler, and color-flow Echocardiogram Patient Location: ICU Room #: 236 Status: routine Other Information Study Quality: Adequate Indications Fluid overload Hx COPD, DM, Afib 2D Dimensions RVDd: 31.94 mm LVEF(%): 77.77 (>50%) IVSd: 13.26 (7-11mm) LVOT Diam: 19.64 (18-24mm) LVDd: 43.69 mm PWd: 11.72 (7-11mm) Ascending Ao: 31.54 (22-36mm) LVDs: 23.52 (25-40mm) Aortic Root: 29.26 mm Cardenas's LVEF: 77.77 % Volumes Left Atrial Volume (Systole) Single Plane 4CH: 17.55 mL Single Plane 2CH: 63.71 mL Aortic Valve AoV Peak Avel.: 2.41 m/s AO Peak Gr.: 14.91 mmHg LVOT Max P.95 mmHg AO Mean Gr.: 13.13 mmHg AO V2 Mean: 1.74 m/s LVOT Max V: 1.50 m/s AO V2 VTI: 34.37 cm KAROLINA Vmax: 1.88 cm2 Mitral Valve E/A Ratio: 0.9 MV Decel. Time: 209.22 ms MV E Max Avel.: 0.84 m/s MV A Avel.: 0.98 m/s MV PHT: 60.[address] [facility] [place] [address] 2 D/M-MODE ECHOCARDIOGRAM Name: JACINDA GUYE Room #: 236-P [facility] IN [facility].#: [id number] Admission: 01/05/17 Attend Phys: Gregorio Sprague, Discharge: Date of : 46 Date of Service: 01/16/17 1652 Report #: [id number] IVRT: 86.51 ms Pulmonary Valve PV Peak Avel.: 1.67 m/s PV Peak Gr.: 11.18 mmHg Pulmonary Vein P Vein S: 0.70 m/s P Vein D: 0.66 m/s P Vein S/D Ratio: 1.06 Tricuspid Valve TR Peak Avel.: 2.25 m/s RAP Estimate: 5.00 mmHg TR Peak Gr.: 20.25 mmHg PA Pressure: 25.00 mmHg Left Ventricle The left ventricle is normal size. There is normal LV segmental wall motion. Mild concentric left ventricular hypertrophy. The left ventricular systolic function is normal. The left ventricular ejection fraction is within the normal range. LVEF is 65-70%. Grade I - abnormal relaxation pattern. Right Ventricle The right ventricle is normal size. The right ventricular systolic function is normal. Atria Left atrium is dilated. Right atrium is at the upper limits of normal. Aortic Valve Aortic valve leaflets are mildly thickened. Trace aortic regurgitation. There is no aortic valvular stenosis. Mitral Valve The mitral valve is normal in structure. No mitral regurgitation. No evidence of mitral valve stenosis. Tricuspid Valve The tricuspid valve is normal in structure. There is trace tricuspid regurgitation. The right atrial pressure is estimated at 5 mmHg. There is no pulmonary hypertension with an estimated PAP of 25 mmHg. Pulmonic Valve The pulmonary valve is normal in structure. Trace pulmonic [facility] [address] [place] [address] 2 D/M-MODE ECHOCARDIOGRAM Name: JACINDA GUY Room #: 236-P [facility] IN ..#: [id number] Admission: 01/05/17 Attend Phys: Gregorio Sprague, Discharge: Date of : 46 Date of Service: 01/16/17 1652 Report #: [id number] regurgitation. Great Vessels The aortic root is normal in size. The ascending aorta is normal in size. IVC is normal in size and collapses >50% with inspiration. Pericardium There is no pericardial effusion. <Conclusion> The left ventricular systolic function is normal. There is normal LV segmental wall motion. LVEF is 65-70%. Grade I, mild, diastoic dysfunction Aortic valve leaflets are mildly thickened. No aortic stenosis or insufficiency. The mitral valve is normal in structure. No mitral regurgitation. There is no pulmonary hypertension with an estimated PAP of 25 mmHg. There is no pericardial effusion. <ELECTRONICALLY SIGNED> By: Jean Ennis MD, FACC 01/16/171651 51 51 Jean Ennis MD, FACC /INF
--- NOTE | ~2017-01-05 | S ---
[facility] [address] [place] [address] SURGICAL PATH RPT PROCEDURE Name: LUCINDA GUY Room #: 462-P ADM IN M.R.#: [id number] Admission: 01/05/17 Date of : 46 Discharge: Report #: [id number] Path Case #: [id number] PATHOLOGY REPORT COLLECTION DATE: 01/20/2017 RECEIVED DATE: 01/21/2017 SUBMITTING PHYS: Dr. Adonay Olmstead OTHER PHYS: Dr. Hussein Shin SPECIMEN(S) RECEIVED: A.Peripheral smear * * * * * * * * * * * * FINAL DIAGNOSIS: Peripheral blood smear: - Severe normocytic to mildly microcytic anemia and marked leukocytosis/neutrophilia with mild left shift (see comment). COMMENT: Overall, the peripheral blood has severe normocytic to mildly microcytic anemia and marked leukocytosis/neutrophilia with mild left shift. The platelet count is within the normal reference range. The etiology of findings is unclear based entirely on slide review. Potential causes of microcytic anemia include iron deficiency and thalassemia. Potential causes of normocytic anemia include anemia of chronic disease, treated and /or compensated vitamin or mineral deficiencies, acute blood loss, and dilutional. Causes of leukocytosis/neutrophilia include infections, drug reactions, smoking and primary bone marrow disorders. If persistent and/or unexplained, BCR/ABL mutational analysis may provide additional information, if clinically indicated. Correlation with clinical history and additional laboratory data is recommended. (CLW:kenji;01/21/2017) PATHOLOGIST: Sabiha Banuelos M.D. REPORT ELECTRONICALLY SIGNED BY: Sabiha Banuelos M.D. DATE/TIME: 01/21/2017 23:25 * * * * * * * * * * * * MICROSCOPIC DESCRIPTION: CBC Data (01/20/17): WBC 44,800 /uL, RBC 3.09, hemoglobin 7.8 g/dL, hematocrit 25.3%, MCV 81.8 fL, MCH 25.4 pg, MCHC 31.1 g/dL, RDW 21.8%. Platelet count 280,000 /uL. Manual white blood cell differential: segs 90%, bands 4%, lymphs 2%, monos 3%, and metas 1%. Peripheral Blood Smear: [address] [address] SURGICAL PATH RPT PROCEDURE Name: LUCINDA GUY Room #: 462- ADM IN .R.#: [id number] Admission: 01/05/17 Date of : 46 Discharge: Report #: [id number] Path Case #: [id number] Cytomorphological examination of the Esposito's stained peripheral blood smear confirms the provided data. Red blood cells show severe normocytic to mildly microcytic anemia with mild to moderate anisopoikilocytosis. No schistocytes or microspherocytes are seen. White blood cells are markedly increased in number. They are predominantly segmented neutrophils and have mild reactive changes. No significant dyspoiesis is identified. There is a mild left shift with only rare myelocytes and metamyelocytes noted on scanning. No blasts or Maribel rods are seen. Lymphocytes are predominantly small, round, and mature appearing with condensed chromatin and scant cytoplasm with admixed large granular lymphocytes. Monocytes are mature. Platelets are adequate in number and mainly normal in morphology with rare larger platelets noted. GROSS PATHOLOGY: Received labeled, Lucinda Guy-are three Esposito's stained smears. CLINICAL HISTORY: 66-year-old woman with anemia and marked leukocytosis. Morphologic review of the peripheral blood smear is requested by the patient's physician. INITIAL CPT CODE(S): A; [place] Professional services performed by [facility] at [facility] [address], [place] [address] Technical services performed by [facility] at [address] [place] [address], [address], [place] [address]. [facility] [address] [place] [address] PHONE: [phone] DIRECTOR: Luis Antonio Cheek M.D. * * * END OF REPORT * * *
[~2017-01-05 09:50] MED LIST changes: +CEFUROXIME250 MG PO; +HEADACHE RELIE1 EAC3 PO; +VITAMIN D1000 UNI1 PO
[2017-01-05 10:47] LABS: ABG SAMPLE TYPE ARTERIAL; BE(vivo) 13.8 mmol/L (-2 to +3); HCO3 44.7 mmol/L (22.0-26.0); LACTATE 0.67 mmol/L (0.5-2.0); O2(CT) 14.3 mL/dL (15.0-23.0); O2Hb 85.7 % (92.0-98.0); PO2 63.1 mmHg (80.0-100.0); sO2 86.9 % (92.0-98.0); tCO2 47.8 mmol/L (24.0-30.0)
[2017-01-05 10:48] LABS: STICK SITE R.RADIAL; pH 7.264 (7.360-7.450)
[2017-01-05 10:49] LABS: Pressure Support 8 cm H20
[2017-01-05 10:50] LABS: HEMOGLOBIN 10.7 gm/dL (12.0-15.0)
[2017-01-05 10:56] LABS: HEMATOCRIT 34.6 % (37.0-47.0); MCH 26.5 pg (26.0-34.0); MCHC 30.8 g/dL (28.0-37.0); PLATELET COUNT 252 thou/uL (150-400); RBC 4.02 mil/uL (4.20-5.00); WBC 17.5 thou/uL (4.0-11.0)
[2017-01-05 10:58] LABS: MANUAL DIFF YES
[2017-01-05 10:59] LABS: BUN 35 mg/dL (7-18); CALCIUM 9.3 mg/dL (8.5-10.1); CHLORIDE 103 mmol/L (98-107); CREATININE 0.6 mg/dL (0.6-1.0); GLUCOSE 118 mg/dL (74-106); POTASSIUM 4.8 mmol/L (3.5-5.1); SODIUM 147 mmol/L (136-145)
[2017-01-05 11:00] LABS: CO2 > 45 mmol/L (21-32)
[2017-01-05 11:05] LABS: DIGOXIN 0.7 ng/mL (0.9-2.0); NT-PRO BRAIN NAT PEPTIDE 1459 pg/mL (<300); TROPONIN-I 0.04 ng/mL (<0.04-0.07)
[2017-01-05 11:16] LABS: ABSOLUTE NEUTROPHILS 14.7 thou/uL (1.4-8.2); ANISOCYTOSIS 2+; HYPOCHROMASIA 1+; PLATELET ESTIMATE NORMAL; TOTAL CELL COUNT 100
[2017-01-05 13:56] LABS: ABG SAMPLE TYPE ARTERIAL; BE(vivo) 14.5 mmol/L (-2 to +3); HCO3 45.1 mmol/L (22.0-26.0); LACTATE 1.05 mmol/L (0.5-2.0); O2(CT) 14.1 mL/dL (15.0-23.0); sO2 81.9 % (92.0-98.0)
[2017-01-05 13:57] LABS: O2Hb 83.6 % (92.0-98.0); PCO2 97.2 mmHg (35.0-45.0); PO2 54.4 mmHg (80.0-100.0); STICK SITE L.RADIAL; pH 7.284 (7.360-7.450)
[2017-01-05 13:58] LABS: Pressure Support 16 cm H20
[2017-01-06] VITALS (21 sets, daily range): BP systolic 103–151; BP diastolic 55–94
[2017-01-06 05:53] LABS: HEMATOCRIT 30.6 % (37.0-47.0); HEMOGLOBIN 9.8 gm/dL (12.0-15.0); MCH 26.8 pg (26.0-34.0); MCHC 31.9 g/dL (28.0-37.0); RBC 3.64 mil/uL (4.20-5.00); RDW 21.1 % (10.5-14.5); WBC 5.3 thou/uL (4.0-11.0)
[2017-01-06 05:59] LABS: CALCIUM 8.7 mg/dL (8.5-10.1); CREATININE 0.9 mg/dL (0.6-1.0); POTASSIUM 4.4 mmol/L (3.5-5.1)
[2017-01-06 09:52] LABS: ABG SAMPLE TYPE ARTERIAL; BE(vivo) 13.4 mmol/L (-2 to +3); HCO3 38.7 mmol/L (22.0-26.0); LACTATE 1.71 mmol/L (0.5-2.0); O2(CT) 14.1 mL/dL (15.0-23.0); O2Hb 95.7 % (92.0-98.0); PCO2 53.4 mmHg (35.0-45.0); STICK SITE R.BRACHIAL; pH 7.478 (7.360-7.450); sO2 96.8 % (92.0-98.0); tCO2 40.3 mmol/L (24.0-30.0)
[2017-01-06 09:53] LABS: ABG COMMENT BIPAP 16/4
[2017-01-07] VITALS (17 sets, daily range): BP systolic 106–156; BP diastolic 40–90
[2017-01-07 08:28] LABS: ABG SAMPLE TYPE ARTERIAL; BE(vivo) 8.9 mmol/L (-2 to +3); HCO3 34.3 mmol/L (22.0-26.0); LACTATE 3.67 mmol/L (0.5-2.0); PCO2 50.9 mmHg (35.0-45.0); PO2 58.2 mmHg (80.0-100.0); STICK SITE L.BRACHIAL; pH 7.446 (7.360-7.450); sO2 90.9 % (92.0-98.0); tCO2 35.8 mmol/L (24.0-30.0)
[2017-01-07 12:10] LABS: HEMATOCRIT 29.5 % (37.0-47.0); HEMOGLOBIN 9.5 gm/dL (12.0-15.0); MCH 27.1 pg (26.0-34.0); MCHC 32.2 g/dL (28.0-37.0); MCV 84.2 fL (80.0-100.0); RBC 3.51 mil/uL (4.20-5.00); RDW 22.3 % (10.5-14.5); WBC 10.5 thou/uL (4.0-11.0)
[2017-01-07 12:23] LABS: ALBUMIN 2.8 g/dL (3.4-5.0); CREATININE 0.9 mg/dL (0.6-1.0); POTASSIUM 3.8 mmol/L (3.5-5.1); TOTAL BILIRUBIN 0.3 mg/dL (<0.1-1.0); TOTAL PROTEIN 5.7 g/dL (6.4-8.2)
[2017-01-08 03:48] VITALS: BP 105/41
[2017-01-08 08:00] VITALS: BP 154/82
[2017-01-08 15:40] VITALS: BP 109/58
[2017-01-08 15:48] VITALS: BP 150/91
[2017-01-08 19:20] VITALS: BP 150/60
[2017-01-09] VITALS (27 sets, daily range): BP systolic 125–172; BP diastolic 53–92
[2017-01-09 05:18] LABS: ABG SAMPLE TYPE ARTERIAL; BE(vivo) 11.1 mmol/L (-2 to +3); HCO3 43.7 mmol/L (22.0-26.0); O2(CT) 14.9 mL/dL (15.0-23.0); O2Hb 93.8 % (92.0-98.0); PO2 84.3 mmHg (80.0-100.0); sO2 91.9 % (92.0-98.0); tCO2 47.6 mmol/L (24.0-30.0)
[2017-01-09 05:19] LABS: PCO2 126.6 mmHg (35.0-45.0); STICK SITE L.BRACHIAL; pH 7.156 (7.360-7.450)
[2017-01-09 05:20] LABS: Pressure Support 14 cm H20
[2017-01-09 06:08] LABS: HEMATOCRIT 34.4 % (37.0-47.0); HEMOGLOBIN 10.1 gm/dL (12.0-15.0); MCH 26.3 pg (26.0-34.0); MCHC 29.5 g/dL (28.0-37.0); PLATELET COUNT 163 thou/uL (150-400); RBC 3.86 mil/uL (4.20-5.00); RDW 22.4 % (10.5-14.5); WBC 24.1 thou/uL (4.0-11.0)
[2017-01-09 06:10] LABS: MCV 89.2 fL (80.0-100.0)
[2017-01-09 06:14] LABS: ANION GAP < 0 mmol/L (7-16); BUN 27 mg/dL (7-18); CALCIUM 8.4 mg/dL (8.5-10.1); CHLORIDE 103 mmol/L (98-107); CO2 43 mmol/L (21-32); CREATININE 0.8 mg/dL (0.6-1.0); GLUCOSE 145 mg/dL (74-106); POTASSIUM 4.9 mmol/L (3.5-5.1); SODIUM 144 mmol/L (136-145)
[2017-01-09 06:37] LABS: MANUAL DIFF YES
[2017-01-09 07:27] LABS: ABG SAMPLE TYPE ARTERIAL; BE(vivo) 12.6 mmol/L (-2 to +3); HCO3 46.2 mmol/L (22.0-26.0); LACTATE 1.01 mmol/L (0.5-2.0); O2(CT) 14.4 mL/dL (15.0-23.0); O2Hb 88.1 % (92.0-98.0); PCO2 139.6 mmHg (35.0-45.0); STICK SITE L.RADIAL; pH 7.138 (7.360-7.450); sO2 83.5 % (92.0-98.0); tCO2 50.5 mmol/L (24.0-30.0)
[2017-01-09 07:28] LABS: ABG COMMENT BIPAP 16/6
[2017-01-09 08:41] LABS: ABSOLUTE NEUTROPHILS 22.4 thou/uL (1.4-8.2); ANISOCYTOSIS 1+; HYPOCHROMASIA SLIGHT; POIKILOCYTOSIS SLIGHT; TOTAL CELL COUNT 100
[2017-01-09 09:28] LABS: ABG SAMPLE TYPE ARTERIAL; BE(vivo) 11.5 mmol/L (-2 to +3); HCO3 43.4 mmol/L (22.0-26.0); LACTATE 1.08 mmol/L (0.5-2.0); O2(CT) 14.2 mL/dL (15.0-23.0); O2Hb 90.6 % (92.0-98.0); PO2 67.3 mmHg (80.0-100.0); sO2 86.6 % (92.0-98.0)
[2017-01-09 09:29] LABS: PCO2 116.2 mmHg (35.0-45.0); Pressure Support 12 cm H20; STICK SITE R.RADIAL
[2017-01-09 10:40] LABS: AMP/METHAMP Negative (Negative); BARBITURATES Negative (Negative); BENZODIAZEPINES Negative (Negative); COCAINE Negative (Negative); METHADONE Negative (Negative); OPIATES Negative (Negative); PCP Negative (Negative); THC Negative (Negative)
[2017-01-10] VITALS (86 sets, daily range): BP systolic 51–156; BP diastolic 29–70
[2017-01-10 04:46] LABS: HEMATOCRIT 36.7 % (37.0-47.0); HEMOGLOBIN 10.9 gm/dL (12.0-15.0); MCH 26.3 pg (26.0-34.0); MCHC 29.7 g/dL (28.0-37.0); MCV 88.6 fL (80.0-100.0); RBC 4.14 mil/uL (4.20-5.00); RDW 21.8 % (10.5-14.5); WBC 38.9 thou/uL (4.0-11.0)
[2017-01-10 05:06] LABS: ANION GAP < 0 mmol/L (7-16); BUN 30 mg/dL (7-18); CALCIUM 8.2 mg/dL (8.5-10.1); CHLORIDE 102 mmol/L (98-107); CO2 43 mmol/L (21-32); CREATININE 0.8 mg/dL (0.6-1.0); GLUCOSE 209 mg/dL (74-106); PHOSPHORUS 3.7 mg/dL (2.5-4.9); SODIUM 143 mmol/L (136-145); TRIGLYCERIDE 139 mg/dL (<150)
[2017-01-10 05:15] LABS: ABG SAMPLE TYPE ARTERIAL; BE(vivo) 10.9 mmol/L (-2 to +3); HCO3 44.1 mmol/L (22.0-26.0); LACTATE 1.81 mmol/L (0.5-2.0); O2(CT) 15.5 mL/dL (15.0-23.0); PO2 66.8 mmHg (80.0-100.0); sO2 85.1 % (92.0-98.0)
[2017-01-10 05:18] LABS: PCO2 126.6 mmHg (35.0-45.0)
[2017-01-10 05:19] LABS: Pressure Support 16 cm H20; STICK SITE R.RADIAL
[2017-01-10 08:22] LABS: ABG SAMPLE TYPE ARTERIAL; BE(vivo) 8.3 mmol/L (-2 to +3); HCO3 40.5 mmol/L (22.0-26.0); LACTATE 2.15 mmol/L (0.5-2.0); O2(CT) 12.5 mL/dL (15.0-23.0); sO2 71.8 % (92.0-98.0); tCO2 44.3 mmol/L (24.0-30.0)
[2017-01-10 08:23] LABS: O2Hb 81.2 % (92.0-98.0); PO2 51.4 mmHg (80.0-100.0); pH 7.143 (7.360-7.450)
[2017-01-10 08:24] LABS: TIDAL VOLUME 350 ml
[2017-01-10 11:17] LABS: ABG SAMPLE TYPE ARTERIAL; HCO3 35.1 mmol/L (22.0-26.0); LACTATE 1.21 mmol/L (0.5-2.0); PO2 70.8 mmHg (80.0-100.0); sO2 89.5 % (92.0-98.0); tCO2 37.9 mmol/L (24.0-30.0)
[2017-01-10 11:18] LABS: STICK SITE L.RADIAL; TIDAL VOLUME 350 ml; pH 7.209 (7.360-7.450)
[2017-01-10 15:06] LABS: ABG SAMPLE TYPE ARTERIAL; BE(vivo) 4.9 mmol/L (-2 to +3); LACTATE 2.53 mmol/L (0.5-2.0); O2(CT) 13.8 mL/dL (15.0-23.0); O2Hb 87.3 % (92.0-98.0); PCO2 88.4 mmHg (35.0-45.0); PO2 57.1 mmHg (80.0-100.0); STICK SITE R.BRACHIAL; pH 7.215 (7.360-7.450); sO2 81.9 % (92.0-98.0); tCO2 37.7 mmol/L (24.0-30.0)
[2017-01-10 15:07] LABS: TIDAL VOLUME 380 ml
[2017-01-10 21:21] LABS: MAGNESIUM 1.8 mg/dL (1.8-2.4); POTASSIUM 4.6 mmol/L (3.5-5.1)
[2017-01-11] VITALS (72 sets, daily range): BP systolic 92–140; BP diastolic 36–90
[2017-01-11 05:07] LABS: HEMATOCRIT 31.1 % (37.0-47.0); HEMOGLOBIN 9.4 gm/dL (12.0-15.0); MCH 26.4 pg (26.0-34.0); MCHC 30.2 g/dL (28.0-37.0); MCV 87.4 fL (80.0-100.0); RBC 3.56 mil/uL (4.20-5.00); RDW 21.9 % (10.5-14.5)
[2017-01-11 05:22] LABS: CALCIUM 7.5 mg/dL (8.5-10.1); CREATININE 1.3 mg/dL (0.6-1.0); POTASSIUM 4.8 mmol/L (3.5-5.1)
[2017-01-11 05:23] LABS: ABG SAMPLE TYPE ARTERIAL; BE(vivo) -0.2 mmol/L (-2 to +3); HCO3 30.1 mmol/L (22.0-26.0); LACTATE 1.51 mmol/L (0.5-2.0); O2(CT) 14.4 mL/dL (15.0-23.0); PO2 86.2 mmHg (80.0-100.0); sO2 93.1 % (92.0-98.0); tCO2 32.8 mmol/L (24.0-30.0)
[2017-01-11 05:24] LABS: PCO2 86.5 mmHg (35.0-45.0); STICK SITE RRA; TIDAL VOLUME 380 ml
[2017-01-11 05:25] LABS: ABG COMMENT AC22 380 +10 100%
[2017-01-11 07:39] LABS: MAGNESIUM 1.8 mg/dL (1.8-2.4)
[2017-01-11 08:27] LABS: ABG SAMPLE TYPE ARTERIAL; BE(vivo) 0.6 mmol/L (-2 to +3); HCO3 30.9 mmol/L (22.0-26.0); LACTATE 1.38 mmol/L (0.5-2.0); O2(CT) 15.3 mL/dL (15.0-23.0); O2Hb 98.1 % (92.0-98.0); PCO2 88.2 mmHg (35.0-45.0); PO2 235.6 mmHg (80.0-100.0); STICK SITE R.RADIAL; pH 7.163 (7.360-7.450); sO2 99.2 % (92.0-98.0); tCO2 33.7 mmol/L (24.0-30.0)
[2017-01-11 08:28] LABS: TIDAL VOLUME 380 ml
[2017-01-11 10:59] LABS: ABG SAMPLE TYPE ARTERIAL; BE(vivo) 2.4 mmol/L (-2 to +3); HCO3 31.6 mmol/L (22.0-26.0); LACTATE 1.45 mmol/L (0.5-2.0); O2(CT) 13.3 mL/dL (15.0-23.0); PCO2 79.1 mmHg (35.0-45.0); PO2 76.2 mmHg (80.0-100.0); STICK SITE R.BRACHIAL; TIDAL VOLUME 380 ml; pH 7.219 (7.360-7.450); sO2 91.8 % (92.0-98.0)
[2017-01-11 13:16] LABS: ABG SAMPLE TYPE ARTERIAL; BE(vivo) 1.1 mmol/L (-2 to +3); HCO3 30.2 mmol/L (22.0-26.0); LACTATE 1.19 mmol/L (0.5-2.0); O2(CT) 12.6 mL/dL (15.0-23.0); O2Hb 94.5 % (92.0-98.0); PCO2 78.5 mmHg (35.0-45.0); PO2 84.4 mmHg (80.0-100.0); STICK SITE R.BRACHIAL; TIDAL VOLUME 380 ml; pH 7.203 (7.360-7.450); sO2 93.5 % (92.0-98.0); tCO2 32.6 mmol/L (24.0-30.0)
[2017-01-11 15:16] LABS: ABG SAMPLE TYPE ARTERIAL; BE(vivo) 3.6 mmol/L (-2 to +3); HCO3 32.4 mmol/L (22.0-26.0); LACTATE 1.01 mmol/L (0.5-2.0); O2Hb 93.1 % (92.0-98.0); PO2 73.5 mmHg (80.0-100.0); sO2 91.5 % (92.0-98.0); tCO2 34.7 mmol/L (24.0-30.0)
[2017-01-11 15:17] LABS: PCO2 76.6 mmHg (35.0-45.0); STICK SITE R.RADIAL; TIDAL VOLUME 380 ml; pH 7.244 (7.360-7.450)
[2017-01-11 15:52] LABS: POTASSIUM 3.4 mmol/L (3.5-5.1)
[2017-01-11 15:54] LABS: CALCIUM 5.8 mg/dL (8.5-10.1)
[2017-01-11 16:30] LABS: APTT 41.1 Seconds (24.5-32.8); PROTIME 10.3 Seconds (9.3-11.4)
[2017-01-12] VITALS (53 sets, daily range): BP systolic 90–140; BP diastolic 40–65
[2017-01-12 05:35] LABS: ABG SAMPLE TYPE ARTERIAL; HCO3 29.7 mmol/L (22.0-26.0); LACTATE 1.12 mmol/L (0.5-2.0); O2(CT) 16.5 mL/dL (15.0-23.0); O2Hb 93.8 % (92.0-98.0); PCO2 68.6 mmHg (35.0-45.0); PO2 73.2 mmHg (80.0-100.0); STICK SITE R.RADIAL; TIDAL VOLUME 380 ml; pH 7.255 (7.360-7.450); sO2 91.9 % (92.0-98.0); tCO2 31.9 mmol/L (24.0-30.0)
[2017-01-12 06:17] LABS: HEMATOCRIT 26.8 % (37.0-47.0); HEMOGLOBIN 8.2 gm/dL (12.0-15.0); MCH 26.2 pg (26.0-34.0); MCHC 30.4 g/dL (28.0-37.0); RBC 3.12 mil/uL (4.20-5.00); WBC 22.9 thou/uL (4.0-11.0)
[2017-01-12 06:31] LABS: ALBUMIN 1.2 g/dL (3.4-5.0); CALCIUM 7.5 mg/dL (8.5-10.1); CREATININE 1.6 mg/dL (0.6-1.0); MAGNESIUM 1.6 mg/dL (1.8-2.4); PHOSPHORUS 2.6 mg/dL (2.5-4.9); POTASSIUM 3.9 mmol/L (3.5-5.1); TOTAL BILIRUBIN 0.2 mg/dL (<0.1-1.0); TOTAL PROTEIN 4.7 g/dL (6.4-8.2)
[2017-01-12 13:36] LABS: ABG SAMPLE TYPE ARTERIAL; BE(vivo) 1.3 mmol/L (-2 to +3); HCO3 30.4 mmol/L (22.0-26.0); LACTATE 0.66 mmol/L (0.5-2.0); O2Hb 95.2 % (92.0-98.0); PO2 88.2 mmHg (80.0-100.0); sO2 94.3 % (92.0-98.0); tCO2 32.8 mmol/L (24.0-30.0)
[2017-01-12 13:37] LABS: PCO2 78.1 mmHg (35.0-45.0); STICK SITE R.RADIAL; TIDAL VOLUME 380 ml; pH 7.208 (7.360-7.450)
[2017-01-13] VITALS (50 sets, daily range): BP systolic 104–170; BP diastolic 45–81
[2017-01-13 05:08] LABS: HEMATOCRIT 25.9 % (37.0-47.0); HEMOGLOBIN 7.9 gm/dL (12.0-15.0); MCH 26.1 pg (26.0-34.0); MCHC 30.6 g/dL (28.0-37.0); MCV 85.3 fL (80.0-100.0); PLATELET COUNT 103 thou/uL (150-400); RBC 3.03 mil/uL (4.20-5.00); RDW 22.4 % (10.5-14.5); WBC 27.6 thou/uL (4.0-11.0)
[2017-01-13 05:10] LABS: CALCIUM 7.6 mg/dL (8.5-10.1); POTASSIUM 4.4 mmol/L (3.5-5.1)
[2017-01-13 05:13] LABS: MANUAL DIFF YES
[2017-01-13 05:48] LABS: ABG SAMPLE TYPE ARTERIAL; BE(vivo) -0.2 mmol/L (-2 to +3); HCO3 28.2 mmol/L (22.0-26.0); LACTATE 0.73 mmol/L (0.5-2.0); O2(CT) 12.4 mL/dL (15.0-23.0); PO2 73.6 mmHg (80.0-100.0); sO2 91.4 % (92.0-98.0); tCO2 30.3 mmol/L (24.0-30.0)
[2017-01-13 05:49] LABS: PCO2 69.4 mmHg (35.0-45.0); STICK SITE L.BRACHIAL; TIDAL VOLUME 380 ml; pH 7.227 (7.360-7.450)
[2017-01-13 08:40] LABS: ABSOLUTE NEUTROPHILS 25.9 thou/uL (1.4-8.2); ANISOCYTOSIS 3+; METAMYELOCYTES 2 %; NUCLEATED RBCS 1 /100WBC; PLATELET ESTIMATE SLIGHTLY DECREASED; TOTAL CELL COUNT 100
[2017-01-13 08:41] LABS: HYPOCHROMASIA 2+; MICROCYTES 1+
[2017-01-13 13:13] LABS: URINE BILIRUBIN NEGATIVE (Negative); URINE BLOOD 1+ (Negative); URINE COLOR YELLOW; URINE GLUCOSE-RANDOM* NEGATIVE (Negative); URINE KETONES NEGATIVE (Negative); URINE NITRITE NEGATIVE (Negative); URINE PROTEIN (DIPSTICK) 1+ (Negative); URINE UROBILINOGEN 0.2 E.U./dl (0.2-1.0)
[2017-01-13 13:26] LABS: URINE CREATININE-RANDOM* 22.5 mg/dL; URINE PROTEIN-RANDOM* 90.6 mg/dL (<11.9)
[2017-01-13 13:28] LABS: CASTS None Seen /LPF (None Seen); SQUAMOUS None Seen /LPF (0-3); URINE RBC 3-10 Few /HPF (0-2); YEAST Present (None Seen)
[2017-01-13 13:29] LABS: AMORPHOUS URATES Few /LPF (None Seen); BACTERIA 1-9 Few /HPF (None Seen); URINE WBC 6-15 Few /HPF (0-5)
[2017-01-14] VITALS (24 sets, daily range): BP systolic 132–159; BP diastolic 52–75
[2017-01-14 05:46] LABS: HEMATOCRIT 23.6 % (37.0-47.0); HEMOGLOBIN 7.3 gm/dL (12.0-15.0); MCH 26.1 pg (26.0-34.0); MCHC 30.9 g/dL (28.0-37.0); MCV 84.4 fL (80.0-100.0); RBC 2.79 mil/uL (4.20-5.00); RDW 21.8 % (10.5-14.5); WBC 29.4 thou/uL (4.0-11.0)
[2017-01-14 06:02] LABS: ALBUMIN 1.1 g/dL (3.4-5.0); CALCIUM 7.7 mg/dL (8.5-10.1); CREATININE 2.3 mg/dL (0.6-1.0); PHOSPHORUS 3.3 mg/dL (2.5-4.9); POTASSIUM 4.9 mmol/L (3.5-5.1)
[2017-01-14 11:36] LABS: ABG SAMPLE TYPE ARTERIAL; BE(vivo) 3.4 mmol/L (-2 to +3); HCO3 30.4 mmol/L (22.0-26.0); LACTATE 1.04 mmol/L (0.5-2.0); O2(CT) 11.3 mL/dL (15.0-23.0); O2Hb 93.6 % (92.0-98.0); PCO2 61.6 mmHg (35.0-45.0); PO2 76.9 mmHg (80.0-100.0); sO2 93.9 % (92.0-98.0); tCO2 32.3 mmol/L (24.0-30.0)
[2017-01-14 11:37] LABS: STICK SITE R.RADIAL; TIDAL VOLUME 380 ml; pH 7.311 (7.360-7.450)
[2017-01-15] VITALS (24 sets, daily range): BP systolic 121–158; BP diastolic 48–90
[2017-01-15 04:24] LABS: HEMATOCRIT 25.3 % (37.0-47.0); MCH 26.1 pg (26.0-34.0); MCHC 31.7 g/dL (28.0-37.0); MCV 82.3 fL (80.0-100.0); RBC 3.08 mil/uL (4.20-5.00); RDW 22.2 % (10.5-14.5); WBC 24.4 thou/uL (4.0-11.0)
[2017-01-15 04:51] LABS: ALBUMIN 1.2 g/dL (3.4-5.0); CREATININE 2.4 mg/dL (0.6-1.0); PHOSPHORUS 3.8 mg/dL (2.5-4.9); POTASSIUM 5.1 mmol/L (3.5-5.1)
[2017-01-15 05:06] LABS: ABG SAMPLE TYPE ARTERIAL; LACTATE 1.09 mmol/L (0.5-2.0); O2(CT) 12.4 mL/dL (15.0-23.0); PCO2 71.1 mmHg (35.0-45.0); PO2 77.7 mmHg (80.0-100.0); STICK SITE L.RADIAL; pH 7.284 (7.360-7.450); sO2 93.4 % (92.0-98.0); tCO2 35.1 mmol/L (24.0-30.0)
[2017-01-15 05:07] LABS: TIDAL VOLUME 380 ml
[2017-01-16] VITALS (27 sets, daily range): BP systolic 92–186; BP diastolic 36–85
[2017-01-16 04:48] LABS: ABG SAMPLE TYPE ARTERIAL; BE(vivo) 5.7 mmol/L (-2 to +3); HCO3 32.9 mmol/L (22.0-26.0); LACTATE 1.29 mmol/L (0.5-2.0); O2Hb 93.2 % (92.0-98.0); PCO2 62.8 mmHg (35.0-45.0); PO2 76.7 mmHg (80.0-100.0); pH 7.337 (7.360-7.450); sO2 94.2 % (92.0-98.0); tCO2 34.8 mmol/L (24.0-30.0)
[2017-01-16 04:50] LABS: ABG COMMENT A/C MODE; STICK SITE R.RADIAL; TIDAL VOLUME 380 ml
[2017-01-16 05:18] LABS: HEMATOCRIT 27.7 % (37.0-47.0); HEMOGLOBIN 8.7 gm/dL (12.0-15.0); MCH 25.8 pg (26.0-34.0); MCHC 31.3 g/dL (28.0-37.0); MCV 82.4 fL (80.0-100.0); RBC 3.37 mil/uL (4.20-5.00); RDW 22.2 % (10.5-14.5); WBC 26.5 thou/uL (4.0-11.0)
[2017-01-16 05:28] LABS: ALBUMIN 1.4 g/dL (3.4-5.0); CALCIUM 8.1 mg/dL (8.5-10.1); CREATININE 2.8 mg/dL (0.6-1.0); PHOSPHORUS 4.4 mg/dL (2.5-4.9)
[2017-01-17] VITALS (27 sets, daily range): BP systolic 82–121; BP diastolic 37–50
[2017-01-17 04:37] LABS: HEMATOCRIT 22.8 % (37.0-47.0); HEMOGLOBIN 7.4 gm/dL (12.0-15.0); MCH 26.1 pg (26.0-34.0); MCHC 32.4 g/dL (28.0-37.0); MCV 80.5 fL (80.0-100.0); RBC 2.83 mil/uL (4.20-5.00); RDW 21.8 % (10.5-14.5); WBC 26.6 thou/uL (4.0-11.0)
[2017-01-17 04:47] LABS: ALBUMIN 1.2 g/dL (3.4-5.0); CALCIUM 7.6 mg/dL (8.5-10.1); CREATININE 2.9 mg/dL (0.6-1.0); PHOSPHORUS 4.7 mg/dL (2.5-4.9); POTASSIUM 5.1 mmol/L (3.5-5.1)
[2017-01-17 05:25] LABS: ABG SAMPLE TYPE ARTERIAL; BE(vivo) 9.3 mmol/L (-2 to +3); HCO3 35.1 mmol/L (22.0-26.0); LACTATE 1.28 mmol/L (0.5-2.0); O2(CT) 11.2 mL/dL (15.0-23.0); PCO2 56.8 mmHg (35.0-45.0); PO2 79.7 mmHg (80.0-100.0); STICK SITE LRA; TIDAL VOLUME 380 ml; pH 7.409 (7.360-7.450); sO2 95.6 % (92.0-98.0); tCO2 36.9 mmol/L (24.0-30.0)
[2017-01-17 05:26] LABS: ABG COMMENT AC24 380 +5 40%
[2017-01-17 12:11] LABS: ABG SAMPLE TYPE ARTERIAL; BE(vivo) 11.3 mmol/L (-2 to +3); HCO3 39.5 mmol/L (22.0-26.0); LACTATE 1.23 mmol/L (0.5-2.0); O2(CT) 12.1 mL/dL (15.0-23.0); O2Hb 92.8 % (92.0-98.0); PO2 80.1 mmHg (80.0-100.0); sO2 94.3 % (92.0-98.0); tCO2 41.9 mmol/L (24.0-30.0)
[2017-01-17 12:12] LABS: PCO2 78.8 mmHg (35.0-45.0); STICK SITE R.RADIAL; TIDAL VOLUME 380 ml; pH 7.318 (7.360-7.450)
[2017-01-18] VITALS (19 sets, daily range): BP systolic 82–141; BP diastolic 41–61
[2017-01-18 05:11] LABS: ABG SAMPLE TYPE ARTERIAL; BE(vivo) 13.7 mmol/L (-2 to +3); HCO3 41.3 mmol/L (22.0-26.0); LACTATE 1.34 mmol/L (0.5-2.0); O2(CT) 12.8 mL/dL (15.0-23.0); PCO2 73.5 mmHg (35.0-45.0); PO2 79.9 mmHg (80.0-100.0); pH 7.368 (7.360-7.450); sO2 94.9 % (92.0-98.0); tCO2 43.6 mmol/L (24.0-30.0)
[2017-01-18 05:12] LABS: ABG COMMENT AC20 380 +5 40%; STICK SITE LRA; TIDAL VOLUME 380 ml
[2017-01-18 05:15] LABS: ALBUMIN 1.3 g/dL (3.4-5.0); ANION GAP < 0 mmol/L (7-16); BUN 129 mg/dL (7-18); CHLORIDE 95 mmol/L (98-107); CO2 42 mmol/L (21-32); CREATININE 2.9 mg/dL (0.6-1.0); GLUCOSE 136 mg/dL (74-106); PHOSPHORUS 5.5 mg/dL (2.5-4.9); SODIUM 136 mmol/L (136-145)
[2017-01-19] VITALS (17 sets, daily range): BP systolic 92–126; BP diastolic 41–65
[2017-01-19 05:13] LABS: CALCIUM 7.8 mg/dL (8.5-10.1); CREATININE 2.8 mg/dL (0.6-1.0)
[2017-01-19 05:40] LABS: ABG SAMPLE TYPE ARTERIAL; BE(vivo) 10.6 mmol/L (-2 to +3); HCO3 37.4 mmol/L (22.0-26.0); LACTATE 1.02 mmol/L (0.5-2.0); O2(CT) 13.5 mL/dL (15.0-23.0); O2Hb 97.9 % (92.0-98.0); PCO2 64.2 mmHg (35.0-45.0); pH 7.383 (7.360-7.450); sO2 99.1 % (92.0-98.0); tCO2 39.4 mmol/L (24.0-30.0)
[2017-01-19 05:41] LABS: STICK SITE L.RADIAL; TIDAL VOLUME 380 ml
[2017-01-19 10:44] LABS: ABG SAMPLE TYPE ARTERIAL; BE(vivo) 16.5 mmol/L (-2 to +3); HCO3 44.5 mmol/L (22.0-26.0); O2(CT) 12.7 mL/dL (15.0-23.0); O2Hb 90.8 % (92.0-98.0); PO2 66.9 mmHg (80.0-100.0); pH 7.377 (7.360-7.450); sO2 91.8 % (92.0-98.0); tCO2 46.9 mmol/L (24.0-30.0)
[2017-01-19 10:45] LABS: ABG COMMENT CPAP TRIAL.; PCO2 77.5 mmHg (35.0-45.0); Pressure Support 8 cm H20; STICK SITE R.RADIAL
[2017-01-19 16:51] LABS: ABG SAMPLE TYPE ARTERIAL; BE(vivo) 16.9 mmol/L (-2 to +3); HCO3 44.9 mmol/L (22.0-26.0); LACTATE 1.14 mmol/L (0.5-2.0); O2(CT) 12.6 mL/dL (15.0-23.0); O2Hb 92.7 % (92.0-98.0); PO2 74.9 mmHg (80.0-100.0); sO2 93.8 % (92.0-98.0); tCO2 47.4 mmol/L (24.0-30.0)
[2017-01-19 16:52] LABS: ABG COMMENT CPAP TRIAL.; PCO2 79.5 mmHg (35.0-45.0); Pressure Support 8 cm H20; STICK SITE R.RADIAL
[2017-01-20] VITALS (22 sets, daily range): BP systolic 111–145; BP diastolic 45–102
[2017-01-20 05:24] LABS: HEMATOCRIT 25.3 % (37.0-47.0); HEMOGLOBIN 7.8 gm/dL (12.0-15.0); MCH 25.4 pg (26.0-34.0); MCHC 31.1 g/dL (28.0-37.0); MCV 81.8 fL (80.0-100.0); PLATELET COUNT 280 thou/uL (150-400); RBC 3.09 mil/uL (4.20-5.00); RDW 21.8 % (10.5-14.5)
[2017-01-20 05:26] LABS: MANUAL DIFF YES
[2017-01-20 05:27] LABS: WBC 44.8 thou/uL (4.0-11.0)
[2017-01-20 05:46] LABS: ALBUMIN 1.5 g/dL (3.4-5.0); ALKALINE PHOSPHATASE 67 U/L (46-116); BUN 125 mg/dL (7-18); CALCIUM 8.2 mg/dL (8.5-10.1); CHLORIDE 96 mmol/L (98-107); CREATININE 2.5 mg/dL (0.6-1.0); GLUCOSE 106 mg/dL (74-106); MAGNESIUM 2.1 mg/dL (1.8-2.4); PHOSPHORUS 6.7 mg/dL (2.5-4.9); POTASSIUM 5.3 mmol/L (3.5-5.1); SGOT 24 U/L (15-37); SGPT 23 U/L (30-65); SODIUM 141 mmol/L (136-145); TOTAL BILIRUBIN 0.3 mg/dL (<0.1-1.0); TOTAL PROTEIN 4.7 g/dL (6.4-8.2)
[2017-01-20 05:49] LABS: CO2 > 45 mmol/L (21-32)
[2017-01-20 12:01] LABS: ABG SAMPLE TYPE ARTERIAL; BE(vivo) 15.8 mmol/L (-2 to +3); HCO3 46.5 mmol/L (22.0-26.0); LACTATE 1.17 mmol/L (0.5-2.0); PO2 63.6 mmHg (80.0-100.0); pH 7.343 (7.360-7.450); sO2 89.7 % (92.0-98.0); tCO2 49.2 mmol/L (24.0-30.0)
[2017-01-20 12:02] LABS: URINE BILIRUBIN NEGATIVE (Negative); URINE BLOOD TRACE (Negative); URINE COLOR YELLOW; URINE GLUCOSE-RANDOM* NEGATIVE (Negative); URINE KETONES NEGATIVE (Negative); URINE LEUKOCYTES-REFLEX 1+ (Negative); URINE PROTEIN (DIPSTICK) NEGATIVE (Negative); URINE SPECIFIC GRAVITY <= 1.005 (1.003-1.035); URINE UROBILINOGEN 0.2 E.U./dl (0.2-1.0)
[2017-01-20 12:04] LABS: Face Shield 50 %; PCO2 87.5 mmHg (35.0-45.0); STICK SITE R.RADIAL
[2017-01-20 12:13] LABS: SQUAMOUS None Seen /LPF (0-3)
[2017-01-20 12:14] LABS: CASTS None Seen /LPF (None Seen); CRYSTALS None Seen /LPF (None Seen); URINE RBC 0-2 Rare /HPF (0-2); URINE WBC-REFLEX 0-5 Rare /HPF (0-5); YEAST-REFLEX Present (None Seen)
[2017-01-20 12:18] LABS: APTT 29.1 Seconds (24.5-32.8); INR 1.1; PROTIME 11.1 Seconds (9.3-11.4)
[2017-01-20 13:00] LABS: ANISOCYTOSIS 1+; TOTAL CELL COUNT 100
[2017-01-20 13:01] LABS: ABSOLUTE NEUTROPHILS 42.1 thou/uL (1.4-8.2); METAMYELOCYTES 1 %
[2017-01-20 13:18] LABS: HEMATOCRIT 26.7 % (37.0-47.0); HEMOGLOBIN 8.3 gm/dL (12.0-15.0); MCH 26.1 pg (26.0-34.0); MCHC 31.2 g/dL (28.0-37.0); MCV 83.5 fL (80.0-100.0); RBC 3.2 mil/uL (4.20-5.00); RDW 21.5 % (10.5-14.5)
[2017-01-20 13:22] LABS: WBC 47.1 thou/uL (4.0-11.0)
[2017-01-21] VITALS (19 sets, daily range): BP systolic 108–153; BP diastolic 43–98
[2017-01-21 04:54] LABS: HEMATOCRIT 24.3 % (37.0-47.0); HEMOGLOBIN 7.5 gm/dL (12.0-15.0); MCH 25.7 pg (26.0-34.0); MCHC 30.7 g/dL (28.0-37.0); MCV 83.6 fL (80.0-100.0); PLATELET COUNT 265 thou/uL (150-400); RBC 2.91 mil/uL (4.20-5.00); RDW 21.8 % (10.5-14.5); WBC 39.5 thou/uL (4.0-11.0)
[2017-01-21 04:56] LABS: MANUAL DIFF YES
[2017-01-21 05:07] LABS: ALBUMIN 1.6 g/dL (3.4-5.0); ALKALINE PHOSPHATASE 66 U/L (46-116); BUN 118 mg/dL (7-18); CHLORIDE 95 mmol/L (98-107); CREATININE 2.5 mg/dL (0.6-1.0); GLUCOSE 90 mg/dL (74-106); POTASSIUM 4.6 mmol/L (3.5-5.1); SGOT 20 U/L (15-37); SGPT 23 U/L (30-65); SODIUM 141 mmol/L (136-145); TOTAL BILIRUBIN 0.3 mg/dL (<0.1-1.0); TOTAL PROTEIN 4.7 g/dL (6.4-8.2)
[2017-01-21 05:08] LABS: ABG SAMPLE TYPE ARTERIAL; BE(vivo) 15.8 mmol/L (-2 to +3); HCO3 43.2 mmol/L (22.0-26.0); LACTATE 1.11 mmol/L (0.5-2.0); O2(CT) 12.3 mL/dL (15.0-23.0); O2Hb 91.4 % (92.0-98.0); PO2 68.8 mmHg (80.0-100.0); pH 7.389 (7.360-7.450); sO2 92.7 % (92.0-98.0); tCO2 45.5 mmol/L (24.0-30.0)
[2017-01-21 05:09] LABS: PCO2 73.2 mmHg (35.0-45.0)
[2017-01-21 05:10] LABS: Pressure Support 10 cm H20; STICK SITE L.RADIAL
[2017-01-21 05:19] LABS: CO2 > 45 mmol/L (21-32)
[2017-01-21 05:33] LABS: ABSOLUTE NEUTROPHILS 37.5 thou/uL (1.4-8.2); ANISOCYTOSIS 1+; HYPOCHROMASIA 2+; METAMYELOCYTES 1 %; PLATELET ESTIMATE NORMAL; TOTAL CELL COUNT 100
[2017-01-22 04:00] VITALS: BP 140/50
[2017-01-22 05:40] LABS: HEMATOCRIT 24.4 % (37.0-47.0); HEMOGLOBIN 7.3 gm/dL (12.0-15.0); MANUAL DIFF YES; MCH 25.8 pg (26.0-34.0); MCHC 30.1 g/dL (28.0-37.0); MCV 85.7 fL (80.0-100.0); PLATELET COUNT 250 thou/uL (150-400); RBC 2.84 mil/uL (4.20-5.00); RDW 21.6 % (10.5-14.5); WBC 30.3 thou/uL (4.0-11.0)
[2017-01-22 06:09] LABS: ALBUMIN 1.8 g/dL (3.4-5.0); ALKALINE PHOSPHATASE 69 U/L (46-116); BUN 111 mg/dL (7-18); CALCIUM 7.9 mg/dL (8.5-10.1); CHLORIDE 97 mmol/L (98-107); CREATININE 2.3 mg/dL (0.6-1.0); GLUCOSE 221 mg/dL (74-106); MAGNESIUM 2.1 mg/dL (1.8-2.4); PHOSPHORUS 6.4 mg/dL (2.5-4.9); POTASSIUM 4.6 mmol/L (3.5-5.1); SGOT 19 U/L (15-37); SGPT 24 U/L (30-65); SODIUM 142 mmol/L (136-145); TOTAL BILIRUBIN 0.3 mg/dL (<0.1-1.0); TOTAL PROTEIN 5.1 g/dL (6.4-8.2)
[2017-01-22 06:13] LABS: CO2 > 45 mmol/L (21-32)
[2017-01-22 08:09] LABS: ABSOLUTE NEUTROPHILS 27.9 thou/uL (1.4-8.2); METAMYELOCYTES 1 %; TOTAL CELL COUNT 100
[2017-01-22 08:10] LABS: ANISOCYTOSIS 2+; HYPOCHROMASIA 2+
[2017-01-22 08:27] VITALS: BP 122/51
[2017-01-22 11:30] LABS: ABG SAMPLE TYPE ARTERIAL; BE(vivo) 16.8 mmol/L (-2 to +3); HCO3 45.8 mmol/L (22.0-26.0); LACTATE 2.09 mmol/L (0.5-2.0); O2(CT) 11.1 mL/dL (15.0-23.0); O2Hb 90.1 % (92.0-98.0); PO2 70.9 mmHg (80.0-100.0); sO2 91.4 % (92.0-98.0); tCO2 48.6 mmol/L (24.0-30.0)
[2017-01-22 11:31] LABS: PCO2 93.2 mmHg (35.0-45.0); STICK SITE R.RADIAL; pH 7.309 (7.360-7.450)
[2017-01-22 12:30] VITALS: BP 125/41
[2017-01-22 17:14] VITALS: BP 132/53
[2017-01-22 17:29] LABS: ABG SAMPLE TYPE ARTERIAL; BE(vivo) 18.5 mmol/L (-2 to +3); HCO3 45.9 mmol/L (22.0-26.0); LACTATE 1.52 mmol/L (0.5-2.0); O2(CT) 10.7 mL/dL (15.0-23.0); PO2 59.5 mmHg (80.0-100.0); pH 7.399 (7.360-7.450); sO2 89.3 % (92.0-98.0); tCO2 48.2 mmol/L (24.0-30.0)
[2017-01-22 17:30] LABS: PCO2 75.9 mmHg (35.0-45.0); STICK SITE R.RADIAL
[2017-01-22 19:19] VITALS: BP 154/62
[2017-01-23 05:32] VITALS: BP 144/63
[2017-01-23 06:45] LABS: ABG SAMPLE TYPE ARTERIAL; BE(vivo) 15.5 mmol/L (-2 to +3); HCO3 42.3 mmol/L (22.0-26.0); LACTATE 1.73 mmol/L (0.5-2.0); O2(CT) 9.7 mL/dL (15.0-23.0); PO2 62.8 mmHg (80.0-100.0); pH 7.394 (7.360-7.450); sO2 90.9 % (92.0-98.0); tCO2 44.5 mmol/L (24.0-30.0)
[2017-01-23 06:46] LABS: PCO2 70.8 mmHg (35.0-45.0); STICK SITE R.BRACHIAL
[2017-01-23 06:46] LABS: HEMATOCRIT 23.1 % (37.0-47.0); MCH 25.9 pg (26.0-34.0); MCHC 30.5 g/dL (28.0-37.0); MCV 85.2 fL (80.0-100.0); RBC 2.72 mil/uL (4.20-5.00); RDW 21.8 % (10.5-14.5); WBC 25.3 thou/uL (4.0-11.0)
[2017-01-23 07:09] VITALS: BP 145/89
[2017-01-23 07:14] LABS: ALBUMIN 1.9 g/dL (3.4-5.0); CALCIUM 7.8 mg/dL (8.5-10.1); CREATININE 2.1 mg/dL (0.6-1.0); PHOSPHORUS 5.6 mg/dL (2.5-4.9); POTASSIUM 4.1 mmol/L (3.5-5.1)
[2017-01-23 07:18] LABS: MAGNESIUM 1.9 mg/dL (1.8-2.4); PHOSPHORUS 5.5 mg/dL (2.5-4.9)
[2017-01-23 11:20] VITALS: BP 128/54
[2017-01-23 16:24] VITALS: BP 128/50
[2017-01-23 20:42] VITALS: BP 11/50
[2017-01-24 03:55] VITALS: BP 119/49
[2017-01-24 06:22] LABS: ALBUMIN 1.8 g/dL (3.4-5.0); CALCIUM 7.8 mg/dL (8.5-10.1); CREATININE 1.6 mg/dL (0.6-1.0); PHOSPHORUS 4.6 mg/dL (2.5-4.9); POTASSIUM 3.5 mmol/L (3.5-5.1)
[2017-01-24 06:24] LABS: MAGNESIUM 1.9 mg/dL (1.8-2.4); PHOSPHORUS 4.6 mg/dL (2.5-4.9)
[2017-01-24 08:30] VITALS: BP 132/65
[2017-01-24 12:50] VITALS: BP 122/56
[2017-01-24 13:16] LABS: ABG SAMPLE TYPE ARTERIAL; BE(vivo) 8.5 mmol/L (-2 to +3); HCO3 34.7 mmol/L (22.0-26.0); LACTATE 1.31 mmol/L (0.5-2.0); O2(CT) 8.3 mL/dL (15.0-23.0); O2Hb 84.7 % (92.0-98.0); PCO2 60.8 mmHg (35.0-45.0); PO2 59.2 mmHg (80.0-100.0); STICK SITE R.RADIAL; pH 7.374 (7.360-7.450); sO2 89.3 % (92.0-98.0); tCO2 36.5 mmol/L (24.0-30.0)
[2017-01-24 13:17] LABS: Pressure Support 14 cm H20; TIDAL VOLUME 1000 ml
[2017-01-24 16:36] VITALS: BP 112/52
[2017-01-24 19:42] VITALS: BP 128/43
[2017-01-25] VITALS (8 sets, daily range): BP systolic 105–142; BP diastolic 45–79
[2017-01-25 04:39] LABS: ALBUMIN 1.8 g/dL (3.4-5.0); CALCIUM 7.7 mg/dL (8.5-10.1); CREATININE 1.5 mg/dL (0.6-1.0); PHOSPHORUS 3.8 mg/dL (2.5-4.9); POTASSIUM 3.4 mmol/L (3.5-5.1)
[2017-01-25 05:48] LABS: MCH 26.1 pg (26.0-34.0); RBC 2.11 mil/uL (4.20-5.00)
[2017-01-25 05:49] LABS: MCHC 31.5 g/dL (28.0-37.0); MCV 82.9 fL (80.0-100.0); RDW 21.7 % (10.5-14.5); WBC 20.3 thou/uL (4.0-11.0)
[2017-01-25 05:52] LABS: HEMATOCRIT 17.6 % (37.0-47.0); HEMOGLOBIN 5.5 gm/dL (12.0-15.0)
[2017-01-25 21:44] LABS: HEMATOCRIT 30.6 % (37.0-47.0); MCH 28.3 pg (26.0-34.0); MCHC 32.6 g/dL (28.0-37.0); MCV 86.7 fL (80.0-100.0); RBC 3.53 mil/uL (4.20-5.00); RDW 17.7 % (10.5-14.5); WBC 15.9 thou/uL (4.0-11.0)
[2017-01-26 04:00] VITALS: BP 122/71
[2017-01-26 07:18] LABS: ABG COMMENT BIPAP 14/4 RR 12 40%; ABG SAMPLE TYPE ARTERIAL; BE(vivo) 3.5 mmol/L (-2 to +3); HCO3 29.9 mmol/L (22.0-26.0); LACTATE 0.84 mmol/L (0.5-2.0); O2(CT) 15.4 mL/dL (15.0-23.0); O2Hb 95.4 % (92.0-98.0); PCO2 54.3 mmHg (35.0-45.0); PO2 89.6 mmHg (80.0-100.0); Pressure Support 10 cm H20; STICK SITE L.RADIAL; pH 7.359 (7.360-7.450); sO2 96.4 % (92.0-98.0); tCO2 31.6 mmol/L (24.0-30.0)
[2017-01-26 07:20] LABS: HEMATOCRIT 30.8 % (37.0-47.0); HEMOGLOBIN 9.6 gm/dL (12.0-15.0); MCH 28.4 pg (26.0-34.0); MCHC 31.2 g/dL (28.0-37.0); MCV 90.8 fL (80.0-100.0); RBC 3.39 mil/uL (4.20-5.00); RDW 18.6 % (10.5-14.5); WBC 13.4 thou/uL (4.0-11.0)
[2017-01-26 07:39] LABS: ALBUMIN 1.8 g/dL (3.4-5.0); CALCIUM 7.7 mg/dL (8.5-10.1); CREATININE 1.4 mg/dL (0.6-1.0); PHOSPHORUS 6.7 mg/dL (2.5-4.9)
[2017-01-26 07:52] VITALS: BP 151/82
[2017-01-26 08:58] LABS: CALCIUM 8.1 mg/dL (8.5-10.1); CREATININE 1.2 mg/dL (0.6-1.0)
[2017-01-26 09:01] LABS: ALBUMIN 2.1 g/dL (3.4-5.0); PHOSPHORUS 3.7 mg/dL (2.5-4.9)
[2017-01-26 09:07] LABS: POTASSIUM 3.7 mmol/L (3.5-5.1)
[2017-01-26 11:52] VITALS: BP 180/86
[2017-01-26 12:46] LABS: HEMATOCRIT 35.2 % (37.0-47.0); MCH 28.2 pg (26.0-34.0); RBC 4.1 mil/uL (4.20-5.00); RDW 17.7 % (10.5-14.5); WBC 24.3 thou/uL (4.0-11.0)
[2017-01-26 12:50] LABS: HEMOGLOBIN 11.6 gm/dL (12.0-15.0); MCV 85.7 fL (80.0-100.0)
[2017-01-26 13:38] VITALS: BP 109/57
[2017-01-26 14:31] LABS: ABG SAMPLE TYPE ARTERIAL; BE(vivo) 2.2 mmol/L (-2 to +3); HCO3 28.5 mmol/L (22.0-26.0); LACTATE 1.59 mmol/L (0.5-2.0); O2(CT) 16.2 mL/dL (15.0-23.0); O2Hb 94.8 % (92.0-98.0); PCO2 52.4 mmHg (35.0-45.0); PO2 87.6 mmHg (80.0-100.0); pH 7.354 (7.360-7.450); sO2 96.2 % (92.0-98.0); tCO2 30.1 mmol/L (24.0-30.0)
[2017-01-26 14:32] LABS: Pressure Support 14 cm H20; STICK SITE R.RADIAL; VDS BIPAP SPONT TIMED cc
[2017-01-26 14:33] LABS: ABG COMMENT 14/4 I/E
[2017-01-26 15:15] LABS: URINE BILIRUBIN NEGATIVE (Negative); URINE BLOOD 1+ (Negative); URINE COLOR YELLOW; URINE GLUCOSE-RANDOM* NEGATIVE (Negative); URINE KETONES NEGATIVE (Negative); URINE LEUKOCYTES-REFLEX 2+ (Negative); URINE PROTEIN (DIPSTICK) NEGATIVE (Negative); URINE SPECIFIC GRAVITY <= 1.005 (1.003-1.035); URINE UROBILINOGEN 0.2 E.U./dl (0.2-1.0)
[2017-01-26 15:25] LABS: CASTS None Seen /LPF (None Seen); CRYSTALS None Seen /LPF (None Seen); SQUAMOUS None Seen /LPF (0-3); URINE RBC 3-10 Few /HPF (0-2); URINE WBC-REFLEX 6-15 Few /HPF (0-5); YEAST-REFLEX Present (None Seen)
[2017-01-26 15:50] VITALS: BP 131/49
[2017-01-26 19:30] VITALS: BP 134/62
[2017-01-27 00:17] LABS: HEMATOCRIT 28.4 % (37.0-47.0); MCH 28.5 pg (26.0-34.0); MCHC 32.8 g/dL (28.0-37.0); MCV 86.9 fL (80.0-100.0); RBC 3.27 mil/uL (4.20-5.00); RDW 17.5 % (10.5-14.5); WBC 13.4 thou/uL (4.0-11.0)
[2017-01-27 00:44] LABS: HEMOGLOBIN 9.3 gm/dL (12.0-15.0)
[2017-01-27 03:10] VITALS: BP 149/65
[2017-01-27 07:18] LABS: CALCIUM 7.6 mg/dL (8.5-10.1); CREATININE 1.2 mg/dL (0.6-1.0); POTASSIUM 3.7 mmol/L (3.5-5.1)
[2017-01-27 07:19] LABS: HEMOGLOBIN 9.4 gm/dL (12.0-15.0); RBC 3.25 mil/uL (4.20-5.00); WBC 13.7 thou/uL (4.0-11.0)
[2017-01-27 07:21] LABS: MCH 28.9 pg (26.0-34.0); MCHC 33.5 g/dL (28.0-37.0); MCV 86.2 fL (80.0-100.0); RDW 17.6 % (10.5-14.5)
[2017-01-27 07:50] VITALS: BP 136/55
[2017-01-27 08:33] LABS: HEMOGLOBIN 9.2 gm/dL (12.0-15.0); WBC 15.1 thou/uL (4.0-11.0)
[2017-01-27 08:34] LABS: HEMATOCRIT 27.5 % (37.0-47.0); MCH 28.5 pg (26.0-34.0); MCHC 33.7 g/dL (28.0-37.0); MCV 84.8 fL (80.0-100.0); RBC 3.24 mil/uL (4.20-5.00); RDW 17.5 % (10.5-14.5)
[2017-01-27 12:20] VITALS: BP 109/57
[2017-01-27 13:32] LABS: HEMATOCRIT 30.1 % (37.0-47.0); HEMOGLOBIN 9.7 gm/dL (12.0-15.0); MCHC 32.2 g/dL (28.0-37.0); MCV 86.9 fL (80.0-100.0); RBC 3.46 mil/uL (4.20-5.00); RDW 17.7 % (10.5-14.5)
[2017-01-27 16:00] VITALS: BP 108/44
[2017-01-27 19:29] VITALS: BP 113/46
[2017-01-28 03:40] VITALS: BP 112/65
[2017-01-28 05:43] LABS: CALCIUM 7.8 mg/dL (8.5-10.1); CREATININE 1.2 mg/dL (0.6-1.0); MAGNESIUM 1.8 mg/dL (1.8-2.4); PHOSPHORUS 4.3 mg/dL (2.5-4.9)
[2017-01-28 08:18] VITALS: BP 119/61
[2017-01-28 09:58] LABS: ABG SAMPLE TYPE ARTERIAL; BE(vivo) -3.2 mmol/L (-2 to +3); HCO3 24.5 mmol/L (22.0-26.0); LACTATE 1.04 mmol/L (0.5-2.0); O2(CT) 13.6 mL/dL (15.0-23.0); O2Hb 85.6 % (92.0-98.0); PCO2 56.5 mmHg (35.0-45.0); tCO2 26.2 mmol/L (24.0-30.0)
[2017-01-28 09:59] LABS: STICK SITE R.BRACHIAL; pH 7.255 (7.360-7.450)
[2017-01-28 12:31] VITALS: BP 93/31
[2017-01-28 12:59] LABS: ABG SAMPLE TYPE ARTERIAL; BE(vivo) -1.2 mmol/L (-2 to +3); HCO3 28.5 mmol/L (22.0-26.0); LACTATE 1.19 mmol/L (0.5-2.0); O2(CT) 13.4 mL/dL (15.0-23.0); O2Hb 95.5 % (92.0-98.0); PCO2 80.5 mmHg (35.0-45.0); PO2 110.7 mmHg (80.0-100.0); STICK SITE R.BRACHIAL; pH 7.167 (7.360-7.450); sO2 96.5 % (92.0-98.0)
[2017-01-28 13:01] LABS: ABG COMMENT BIPAP 14/4
[2017-01-28 15:18] VITALS: BP 99/54
[2017-01-28 21:20] VITALS: BP 112/64
[2017-01-29 03:49] VITALS: BP 123/62
[2017-01-29 08:21] VITALS: BP 111/60
[2017-01-29 11:53] LABS: HEMATOCRIT 26.9 % (37.0-47.0); HEMOGLOBIN 8.7 gm/dL (12.0-15.0); MCH 27.9 pg (26.0-34.0); MCHC 32.5 g/dL (28.0-37.0); MCV 85.9 fL (80.0-100.0); RBC 3.13 mil/uL (4.20-5.00); RDW 17.9 % (10.5-14.5); WBC 15.3 thou/uL (4.0-11.0)
[2017-01-29 11:59] VITALS: BP 101/61
[2017-01-29 12:00] LABS: CALCIUM 8.2 mg/dL (8.5-10.1); CREATININE 1.3 mg/dL (0.6-1.0); POTASSIUM 4.5 mmol/L (3.5-5.1)
[2017-01-29 16:26] VITALS: BP 104/51
[2017-01-29 19:40] VITALS: BP 116/63
[2017-01-30 04:10] VITALS: BP 125/62
[2017-01-30 06:38] LABS: CREATININE 1.1 mg/dL (0.6-1.0); MAGNESIUM 1.9 mg/dL (1.8-2.4); PHOSPHORUS 3.8 mg/dL (2.5-4.9); POTASSIUM 4.4 mmol/L (3.5-5.1)
[2017-01-30 07:35] VITALS: BP 129/60
[2017-01-30 11:15] VITALS: BP 113/59
[2017-01-30 15:33] VITALS: BP 117/51
[2017-01-30 19:38] VITALS: BP 103/46
[2017-01-31 04:49] VITALS: BP 140/74
[2017-01-31 06:52] LABS: HEMATOCRIT 24.6 % (37.0-47.0); HEMOGLOBIN 8.2 gm/dL (12.0-15.0)
[2017-01-31 07:04] LABS: CALCIUM 8.1 mg/dL (8.5-10.1); CREATININE 0.9 mg/dL (0.6-1.0); POTASSIUM 4.6 mmol/L (3.5-5.1)
[2017-01-31 07:28] VITALS: BP 110/58
[2017-01-31 11:32] VITALS: BP 106/40
[2017-01-31 16:23] VITALS: BP 99/44
[2017-01-31 19:46] VITALS: BP 113/62
[2017-02-01 05:57] VITALS: BP 149/77
[2017-02-01 06:14] LABS: CALCIUM 8.2 mg/dL (8.5-10.1); CREATININE 0.9 mg/dL (0.6-1.0); MAGNESIUM 1.9 mg/dL (1.8-2.4); PHOSPHORUS 4.7 mg/dL (2.5-4.9); POTASSIUM 4.7 mmol/L (3.5-5.1)
[2017-02-01 08:54] VITALS: BP 115/54
[2017-02-01 12:25] VITALS: BP 110/39
[2017-02-01 15:09] VITALS: BP 111/35
[2017-02-01 19:24] VITALS: BP 92/34
[2017-02-02 04:30] VITALS: BP 106/40
[2017-02-02 05:44] LABS: CALCIUM 8.5 mg/dL (8.5-10.1); CREATININE 0.9 mg/dL (0.6-1.0); MAGNESIUM 1.8 mg/dL (1.8-2.4); PHOSPHORUS 4.7 mg/dL (2.5-4.9); POTASSIUM 5.3 mmol/L (3.5-5.1)
[2017-02-02 07:16] VITALS: BP 130/58
[2017-02-02 11:52] VITALS: BP 121/51
[2017-02-02 15:16] VITALS: BP 105/40
[2017-02-02 20:28] VITALS: BP 98/27
[2017-02-03 00:06] VITALS: BP 105/35
[2017-02-03 04:00] VITALS: BP 103/40
[2017-02-03 05:45] LABS: HEMATOCRIT 23.5 % (37.0-47.0); HEMOGLOBIN 7.9 gm/dL (12.0-15.0); MCH 28.8 pg (26.0-34.0); MCHC 33.7 g/dL (28.0-37.0); MCV 85.5 fL (80.0-100.0); RBC 2.74 mil/uL (4.20-5.00); RDW 17.2 % (10.5-14.5); WBC 10.8 thou/uL (4.0-11.0)
[2017-02-03 08:15] VITALS: BP 119/57
[2017-02-03] MEDS ORDERED: NICOTINE TRANSD14 M1 TRANSDERM (15:46)
[2017-02-03] MEDS ORDERED: PREDNISONE 10 M10 MG PO ×2 (15:50→16:05)
[2017-02-03] MEDS ORDERED: AZITHROMYCIN 2250 MG PO (16:04)
[2017-02-03 16:21] VITALS: BP 119/51
[2017-02-03 19:16] VITALS: BP 118/47
[2017-02-04 03:50] VITALS: BP 128/55
[2017-02-04 08:21] VITALS: BP 128/89
[2017-02-04 12:09] VITALS: BP 120/48
[2017-02-04 15:32] VITALS: BP 117/51
[2017-02-04 20:56] VITALS: BP 108/51
[2017-02-05 04:00] VITALS: BP 134/68
[2017-02-05 07:56] VITALS: BP 138/66
== END 2017-02-05 10:53 | DRG 870 ==
LOC: ER 09:50 → ICU 11:04 → EROBS 11:04 → ICU 13:21 → 4W 01-07 13:44 → ICU 01-09 04:41 → 4W 01-21 16:13
PROVIDERS: Hospitalist; Internal Medicine; Internal Medicine Nephrology; Internal Medicine Pulmonary Disease; Nurse Practitioner; Nurse Practitioner Acute Care; Nurse Practitioner Adult Health; Nurse Practitioner Family; Physician Assistant; Specialist
PROC: 0BH17EZ Insertion of Endotracheal Airway into Trachea, Via Natural or Artificial Opening (ICD-10-PCS; principal; 2017-01-10)
PROC: 5A1955Z Respiratory Ventilation, Greater than 96 Consecutive Hours (ICD-10-PCS; principal; 2017-01-10)
DX: A41.9 Sepsis, unspecified organism (principal); J69.0 Pneumonitis due to inhalation of food and vomit; J96.01 Acute respiratory failure with hypoxia; R65.21 Severe sepsis with septic shock; E43 Unspecified severe protein-calorie malnutrition; G92 Toxic encephalopathy; J44.1 Chronic obstructive pulmonary disease with (acute) exacerbation; N17.9 Acute kidney failure, unspecified; K92.2 Gastrointestinal hemorrhage, unspecified; Z72.0 Tobacco use; D64.9 Anemia, unspecified; I12.9 Hypertensive chronic kidney disease with stage 1 through stage 4 chronic kidney disease, or unspecified chronic kidney disease; N18.9 Chronic kidney disease, unspecified; I48.0 Paroxysmal atrial fibrillation; Z91.19 Patient's noncompliance with other medical treatment and regimen; E11.9 Type 2 diabetes mellitus without complications
CPT/HCPCS: 10045; 10078; 10203; 27000; 27001

== ENCOUNTER → 2017-06-23 | Outpatient (CLI) | payer OTHER ==
[~2017-06-23] MED LIST changes: +AZITHROMYCIN 2250 MG PO; +NICOTINE TRANSD14 M1 TRANSDERM
== END ==
LOC: RAD 14:59
DX: R06.02 Shortness of breath (principal)

== ENCOUNTER 2018-04-18 09:31 | Inpatient (IN) | payer OTHER ==
[2018-04-18] VITALS (9 sets, daily range): BP systolic 118–169; BP diastolic 62–102
[~2018-04-18] VITALS: Ht 157.5 cm; Wt 54.4 kg
--- NOTE | ~2018-04-18 | EKG ---
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[facility] : 1950 Requested By: Phyllis Erickson Order Number: [id number] MD: Jere Manley Measurements Intervals [place] Rate: 107 P: 74 FL: 165 QRS: 26 QRSD: 82 T: 49 QT: 323 QTc: 431 Interpretive Statements Sinus tachycardia Left atrial enlargement Borderline low voltage, extremity leads Compared to ECG 04/13/2018 10:29:23 Atrial abnormality now present Atrial fibrillation no longer present ST (T wave) deviation no longer present Electronically Signed On 04-18-2018 13:32:55 CDT by Jere Manley [email or web address] <ELECTRONICALLY SIGNED> By: Jere Manley MD 04/18/18 1332 1039 [id number] Jere Manley MD /EPI
[~2018-04-18 09:31] MED LIST changes: +CARDIZEM CD120 MG PO; +ELIQUIS2.5 MG PO; +LEVAQUIN 500 M500 M1 PO; +MEDI-PATCH WIT1 EACH TOP; +MUCINEX600 MG PO; +MULTAQ 400 MG400 MG PO
[2018-04-18 10:35] LABS: HEMATOCRIT 35.9 % (37.0-47.0); HEMOGLOBIN 11.2 gm/dL (12.0-15.0); MCH 28.8 pg (26.0-34.0); MCHC 31.1 g/dL (28.0-37.0); MCV 92.6 fL (80.0-100.0); PLATELET COUNT 249 thou/uL (150-400); RBC 3.88 mil/uL (4.20-5.00); RDW 15.5 % (10.5-14.5); WBC 20.1 thou/uL (4.0-11.0)
[2018-04-18 10:56] LABS: BUN 29 mg/dL (7-18); CALCIUM 8.9 mg/dL (8.5-10.1); CHLORIDE 103 mmol/L (98-107); GLUCOSE 124 mg/dL (74-106); SODIUM 144 mmol/L (136-145)
[2018-04-18 10:59] LABS: POTASSIUM 5.3 mmol/L (3.5-5.1)
[2018-04-18 11:02] LABS: ALBUMIN 2.8 g/dL (3.4-5.0); SGOT 24 U/L (15-37); SGPT 54 U/L (30-65); TOTAL BILIRUBIN 0.4 mg/dL (<0.1-1.0); TOTAL PROTEIN 6.5 g/dL (6.4-8.2); TROPONIN-I <0.06 ng/mL (<0.06)
[2018-04-18 11:04] LABS: CO2 > 45 mmol/L (21-32)
[2018-04-18 11:12] LABS: URINE BILIRUBIN NEGATIVE (Negative); URINE BLOOD NEGATIVE (Negative); URINE CLARITY CLEAR; URINE COLOR YELLOW; URINE GLUCOSE-RANDOM* NEGATIVE (Negative); URINE KETONES NEGATIVE (Negative); URINE LEUKOCYTES-REFLEX NEGATIVE (Negative); URINE NITRITE-REFLEX NEGATIVE (Negative); URINE PROTEIN (DIPSTICK) TRACE (Negative); URINE SPECIFIC GRAVITY 1.025 (1.005-1.035); URINE UROBILINOGEN 0.2 E.U./dl (0.2-1.0)
[2018-04-18 11:24] LABS: BE(vivo) 21.3 mmol/L (-2 to +3); HCO3 53.4 mmol/L (22.0-26.0); PCO2 117.5 mmHg (35.0-45.0); PO2 65.2 mmHg (80.0-100.0); pH 7.275 (7.360-7.450); sO2 87.7 % (92.0-98.0)
[2018-04-18 12:02] LABS: ABSOLUTE NEUTROPHILS 18.3 thou/uL (1.4-8.2); ANISOCYTOSIS 1+
[2018-04-18 12:24] LABS: CASTS None Seen /LPF (None Seen); CRYSTALS None Seen /LPF (None Seen)
[2018-04-18 12:25] LABS: BACTERIA None Seen /HPF (None Seen); SQUAMOUS None Seen /LPF (0-3); URINE RBC 0-2 Rare /HPF (0-2); URINE WBC 0-5 Rare /HPF (0-5)
[2018-04-18 12:26] LABS: HYALINE CASTS 0-3 Few /LPF (None Seen)
[2018-04-18 13:38] LABS: BE(vivo) 17.1 mmol/L (-2 to +3); HCO3 45.7 mmol/L (22.0-26.0); PO2 61.9 mmHg (80.0-100.0); pH 7.391 (7.360-7.450); sO2 90.3 % (92.0-98.0)
[2018-04-18 23:30] LABS: AMP/METHAMP Negative (Negative); BARBITURATES Negative (Negative); BENZODIAZEPINES Negative (Negative); COCAINE Negative (Negative); METHADONE Negative (Negative); OPIATES Negative (Negative); PCP Negative (Negative)
[2018-04-19] VITALS (16 sets, daily range): BP systolic 113–161; BP diastolic 59–96
[2018-04-19 05:11] LABS: ALBUMIN 2.6 g/dL (3.4-5.0); ANION GAP < 0 mmol/L (7-16); BUN 41 mg/dL (7-18); CALCIUM 9.6 mg/dL (8.5-10.1); CHLORIDE 97 mmol/L (98-107); CO2 43 mmol/L (21-32); CREATININE 1.3 mg/dL (0.6-1.0); GLUCOSE 142 mg/dL (74-106); PHOSPHORUS 4.4 mg/dL (2.5-4.9); POTASSIUM 4.8 mmol/L (3.5-5.1); SODIUM 139 mmol/L (136-145)
[2018-04-19 05:27] LABS: BE(vivo) 10.5 mmol/L (-2 to +3); HCO3 36.5 mmol/L (22.0-26.0); PCO2 55.4 mmHg (35.0-45.0); PO2 72.7 mmHg (80.0-100.0); pH 7.437 (7.360-7.450); sO2 94.8 % (92.0-98.0)
[2018-04-19 05:34] LABS: HEMATOCRIT 35.4 % (37.0-47.0); HEMOGLOBIN 11.2 gm/dL (12.0-15.0); MCH 28.6 pg (26.0-34.0); MCHC 31.7 g/dL (28.0-37.0); MCV 90.2 fL (80.0-100.0); RBC 3.93 mil/uL (4.20-5.00); RDW 14.9 % (10.5-14.5)
[2018-04-20] VITALS: BP 129/71
[2018-04-20 04:10] VITALS: BP 141/71
[2018-04-20 07:57] VITALS: BP 148/74
[2018-04-20 11:30] VITALS: BP 142/67
[2018-04-20 15:15] VITALS: BP 163/65
[2018-04-20 19:07] VITALS: BP 131/64
[2018-04-21 03:25] VITALS: BP 137/74
[2018-04-21 09:07] VITALS: BP 149/65
[2018-04-21] MEDS ORDERED: MIRALAX17 GM PO (09:22)
[2018-04-21] MEDS ORDERED: PREDNISONE 10 M10 MG PO (09:23)
[2018-04-21] MEDS ORDERED: AMBIEN 5 MG TABL5 M1 PO (09:26)
[2018-04-21 11:19] LABS: BE(vivo) 6.6 mmol/L (-2 to +3); HCO3 32.4 mmol/L (22.0-26.0); PCO2 53.2 mmHg (35.0-45.0); PO2 63.3 mmHg (80.0-100.0); pH 7.403 (7.360-7.450); sO2 91.9 % (92.0-98.0)
[2018-04-21 11:21] VITALS: BP 134/57
[2018-04-21 16:22] VITALS: BP 138/67
[2018-04-21 20:46] VITALS: BP 140/56
[2018-04-22 04:37] VITALS: BP 132/64
[2018-04-22 08:14] VITALS: BP 124/54
== END 2018-04-22 16:04 | DRG 189 ==
LOC: ER 09:31 → EROBS 11:47 → ICU 11:47 → 3W 11:47 → ICU 16:04 → 3W 04-19 20:03
PROVIDERS: Hospitalist; Internal Medicine Pulmonary Disease; Pediatrics; Student in an Organized Health Care Education/Training Program
PROC: 5A09357 Assistance with Respiratory Ventilation, Less than 24 Consecutive Hours, Continuous Positive Airway Pressure (ICD-10-PCS; principal; 2018-04-18)
PROC: 5A09357 Assistance with Respiratory Ventilation, Less than 24 Consecutive Hours, Continuous Positive Airway Pressure (ICD-10-PCS; 2018-04-19)
PROC: 5A09357 Assistance with Respiratory Ventilation, Less than 24 Consecutive Hours, Continuous Positive Airway Pressure (ICD-10-PCS; 2018-04-20)
PROC: 5A09357 Assistance with Respiratory Ventilation, Less than 24 Consecutive Hours, Continuous Positive Airway Pressure (ICD-10-PCS; 2018-04-21)
PROC: 5A09357 Assistance with Respiratory Ventilation, Less than 24 Consecutive Hours, Continuous Positive Airway Pressure (ICD-10-PCS; 2018-04-22)
DX: J96.22 Acute and chronic respiratory failure with hypercapnia (principal); G93.41 Metabolic encephalopathy; E43 Unspecified severe protein-calorie malnutrition; N17.9 Acute kidney failure, unspecified; J44.1 Chronic obstructive pulmonary disease with (acute) exacerbation; J96.21 Acute and chronic respiratory failure with hypoxia; I10 Essential (primary) hypertension; F12.90 Cannabis use, unspecified, uncomplicated; G47.33 Obstructive sleep apnea (adult) (pediatric); R13.10 Dysphagia, unspecified; G89.29 Other chronic pain; I48.2 Chronic atrial fibrillation; M54.9 Dorsalgia, unspecified; Z86.711 Personal history of pulmonary embolism; Z88.6 Allergy status to analgesic agent; Z88.0 Allergy status to penicillin; Z87.891 Personal history of nicotine dependence; Z99.81 Dependence on supplemental oxygen; Z98.82 Breast implant status; Z79.899 Other long term (current) drug therapy; Z68.21 Body mass index [BMI] 21.0-21.9, adult; Z62.813 Personal history of forced labor or sexual exploitation in childhood; Z23 Encounter for immunization
CPT/HCPCS: 10078; 10879